=== PATIENT | female | born 1990 | race Caucasian/White ===

== ENCOUNTER 2016-11-13 21:59 | Emergency (ER) | payer OTHER, MEDICAID ==
[2016-11-14] MEDS ORDERED: ONDANSETRON ODT 4 MG TAB (6 TAB/DSPK) PO PRN (00:53)
[2016-11-14] MEDS ORDERED: HYDROCODONE/ACETAMINOPHEN 5-325 MG 6 TAB/DSPK PO PRN (00:53)
[2016-11-14] MEDS ORDERED: MECLIZINE HCL 25 MG TABLET PO ONE (00:53)
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
== END 2016-11-14 01:43 | disposition home or self-care (01) ==
LOC: EEVIPCON 21:59 → ER 21:59
DX: F07.81 Postconcussional syndrome (principal); R42 Dizziness and giddiness; R11.0 Nausea; R51 Headache
CPT/HCPCS: 99284

== ENCOUNTER 2017-05-09 21:16 | Emergency (ER) | payer MEDICAID, OTHER ==
[2017-05-09] MEDS ORDERED: IBUPROFEN 800 MG TABLET PO ONE (22:45)
[2017-05-09] MEDS ORDERED: AZITHROMYCIN 250 MG TABLET PO ONE (22:45)
[2017-05-09] MEDS ORDERED: NEOMY SULF/POLYMYX B SULF/HC OTIC SUSP 10 ML AD SCH (22:45)
--- NOTE | 2017-05-09 22:55 | ER Document Report ---
ED General - General Chief Complaint: Ear Pain Stated Complaint: EAR PAIN Time Seen by Provider: 05/09/17 22:30 Mode of Arrival: Ambulatory Information source: Patient TRAVEL OUTSIDE OF THE [place] IN LAST 30 DAYS: No - HPI Notes: Patient is a 26-year-old female history of seasonal allergies and previous tonsillectomy 17 years ago presents emergency department with report of a 2 week history of cough congestion with bilateral ear pain and diminished hearing. The patient reports that she blew her nose and had a reyes of foul- smelling fluid coming from the right ear at 1600 today. She reports a mild pharyngitis. She denies any dizziness. There is a history of diet-controlled diabetes. - Related Data Allergies/Adverse Reactions: Penicillins Allergy (Severe, Verified 07/06/16 20:15) Anaphylaxis all cillins Allergy (Severe, Uncoded 07/06/16 20:15) Anaphylaxis Past Medical History - General Information source: Patient - Social History Smoking Status: Current Every Day Smoker Chew tobacco use (# tins/day): No Frequency of alcohol use: Occasional Drug Abuse: None Family History: CVA, DM, Malignancy Pulmonary Medical History: Reports: Hx Bronchitis Endocrine Medical History: Comment Only: Hx Diabetes Mellitus Type 2 - "prediabetic" Renal/ Medical History: Reports: Hx Ovarian Cysts. Denies: Hx Peritoneal Dialysis, Hx Pelvic Inflammatory Disease Psychiatric Medical History: Reports: Hx Depression Infectious Medical History: Denies: Hx HIV Past Surgical History: Reports: Hx Oral Surgery, Hx Tonsillectomy - Immunizations Immunizations up to date: Yes Hx Diphtheria, Pertussis, Tetanus Vaccination: Yes Review of Systems - Review of Systems Notes: REVIEW OF SYSTEMS: CONSTITUTIONAL : Denies fever, chills, or sweats. Denies recent illness. EENT: Denies eye, or mouth pain or symptoms. Denies throat, tongue, or mouth swelling or difficulty swallowing. CARDIOVASCULAR: Denies chest pain. Denies palpitations or racing or irregular heart beat. Denies ankle edema. RESPIRATORY: Denies shortness of breath, difficulty breathing, or wheezing. GASTROINTESTINAL: Denies abdominal pain or distention. Denies nausea, vomiting , or diarrhea. Denies blood in vomitus, stools, or per rectum. Denies black, tarry stools. Denies constipation. GENITOURINARY: Denies difficulty urinating, painful urination, burning, frequency, blood in urine, or discharge. FEMALE GENITOURINARY: Denies vaginal bleeding, heavy or abnormal periods, irregular periods. Denies vaginal discharge or odor. MUSCULOSKELETAL: Denies back or neck pain or stiffness. Denies joint pain or swelling. SKIN: Denies rash, lesions or sores. HEMATOLOGIC : Denies easy bruising or bleeding. LYMPHATIC: Denies swollen, enlarged glands. NEUROLOGICAL: Denies confusion or altered mental status. Denies passing out or loss of consciousness. Denies dizziness or lightheadedness. Denies headache. Denies weakness or paralysis or loss of use of either side. Denies problems with gait or speech. Denies sensory loss, numbness, or tingling. Denies seizures. PSYCHIATRIC: Denies anxiety or stress. Denies depression, suicidal ideation, or homicidal ideation. ALL OTHER SYSTEMS REVIEWED AND NEGATIVE. Dictation was performed using [employer] voice recognition software Physical Exam - Vital signs Vitals: Temp Pulse Resp BP Pulse Ox 98.4 F 104 H 18 145/83 H 97 05/09/17 21:20 05/09/17 21:20 05/09/17 21:20 05/09/17 21:20 05/09/17 21:20 - Notes Notes: PHYSICAL EXAMINATION: GENERAL: Well-appearing, well-nourished and in no acute distress. HEAD: Atraumatic, normocephalic. EYES: Pupils equal round and reactive to light, extraocular movements intact, conjunctiva are normal. ENT: Nares patent. oropharynx clear without exudates. Moist mucous membranes. Status post tonsillectomy. Mild coryza noted. There is somewhat clear fluid behind both TMs. The right TM appears without bulging. I am unable to appreciate any obvious tympanic membrane perforation on initial exam, but when the patient attempts to clear her ears I am able to appreciate a small area of a perforation of the tympanic membrane at approximately 5:00. There is no bleeding however. No evidence for otitis externa. There is no mastoid tenderness. NECK: Normal range of motion, supple without lymphadenopathy LUNGS: Breath sounds clear to auscultation bilaterally and equal. No wheezes rales or rhonchi. HEART: Regular rate and rhythm without murmurs ABDOMEN: Soft, nontender, nondistended abdomen. No guarding, no rebound. No masses appreciated. Female : deferred Musculoskeletal: Normal range of motion, no pitting or edema. No cyanosis. NEUROLOGICAL: Cranial nerves grossly intact. Normal speech, normal gait. Normal sensory, motor exams PSYCH: Normal mood, normal affect. SKIN: Warm, Dry, normal turgor, no rashes or lesions noted. Course - Re-evaluation Re-evalutation: 05/09/17 23:40 Blood sugar is 91. The patient was given Cortisporin otic suspension drops, ibuprofen, Zithromax. ENT followup urged. 05/09/17 23:41 - Vital Signs Vital signs: Temp Pulse Resp BP Pulse Ox 98.4 F 104 H 18 145/83 H 97 05/09/17 21:20 05/09/17 21:20 05/09/17 21:20 05/09/17 21:20 05/09/17 21:20 Discharge - Discharge Clinical Impression: Otitis media Qualifiers: Otitis media type: serous Chronicity: acute Laterality: bilateral Recurrence: not specified as recurrent Qualified Code(s): H65.03 - Acute serous otitis media , bilateral Upper respiratory infection Qualifiers: URI type: unspecified viral URI Qualified Code(s): J06.9 - Acute upper respiratory infection, unspecified Tympanic membrane central perforation Qualifiers: Laterality: right Qualified Code(s): H72.01 - Central perforation of tympanic membrane, right ear Condition: Stable Disposition: HOME, SELF-CARE Instructions: Upper Respiratory Illness ([facility]), Perforated Eardrum ([facility]), Serous Otitis Media ([facility]) Additional Instructions: Continue taking Mucinex. Add in Clarinex as directed for any allergic symptoms. Follow-up with tool gr[employer] within 2-3 weeks to reevaluate the perforated eardrum. Prescriptions: Ibuprofen 800 mg PO Q8HP PRN #30 tablet PRN Reason: Azithromycin [Zithromax 250 mg Tablet] 250 mg PO DAILY #4 tablet Desloratadine [Clarinex] 5 mg PO DAILY #30 tablet Forms: Return to Work Referrals: LUCIANA KAPOOR MD [Primary Care Provider] - Follow up as needed ENT [Provider Group] - Follow up as needed KOFI VIDALES MD [ACTIVE STAFF] - Follow up as needed
[2017-05-09 23:57] VITALS: BP 137/79
== END 2017-05-09 23:55 | disposition home or self-care (01) ==
LOC: ER 21:16
DX: H65.03 Acute serous otitis media, bilateral (principal); H72.01 Central perforation of tympanic membrane, right ear; J06.9 Acute upper respiratory infection, unspecified; B97.89 Other viral agents as the cause of diseases classified elsewhere; R05 Cough; H92.03 Otalgia, bilateral; J02.9 Acute pharyngitis, unspecified; F17.200 Nicotine dependence, unspecified, uncomplicated; Z87.892 Personal history of anaphylaxis; Z88.0 Allergy status to penicillin; Z90.89 Acquired absence of other organs
CPT/HCPCS: 99283; 82962; Q0144; J3490 ×2

== ENCOUNTER 2017-08-14 18:39 | Emergency (ER) | payer SELFPAY ==
[2017-08-14] MEDS ORDERED: NORMAL SALINE 1000 ML 1,000 ML IV PRN (19:35)
[2017-08-14] MEDS ORDERED: ONDANSETRON 4 MG TAB.RAPDIS SL ONE (19:35)
--- NOTE | 2017-08-14 19:35 | ER Document Report ---
ED Medical Screen (RME) - General Chief Complaint: Abdominal Pain Stated Complaint: VOMITING Time Seen by Provider: 08/14/17 18:54 Mode of Arrival: Ambulatory Information source: Patient TRAVEL OUTSIDE OF THE [place] IN LAST 30 DAYS: No - HPI Patient complains to provider of: Abdominal pain, nausea and vomiting Notes: 08/14/17 19:35 Patient is a 27-year-old female with abdominal pain on the right side, nausea and vomiting with decreased urination, symptoms have been going on for the past 24 hours - Related Data Allergies/Adverse Reactions: Penicillins Allergy (Severe, Verified 08/14/17 18:48) Anaphylaxis all cillins Allergy (Severe, Uncoded 08/14/17 18:48) Anaphylaxis Past Medical History Pulmonary Medical History: Reports: Hx Bronchitis Endocrine Medical History: Comment Only: Hx Diabetes Mellitus Type 2 - "prediabetic" Renal/ Medical History: Reports: Hx Ovarian Cysts. Denies: Hx Peritoneal Dialysis, Hx Pelvic Inflammatory Disease Psychiatric Medical History: Reports: Hx Depression Infectious Medical History: Denies: Hx HIV Past Surgical History: Reports: Hx Oral Surgery, Hx Tonsillectomy - Immunizations Immunizations up to date: Yes Hx Diphtheria, Pertussis, Tetanus Vaccination: Yes Physical Exam - Vital signs Vitals: Temp Pulse Resp BP Pulse Ox 99.8 F 100 14 135/83 H 97 08/14/17 18:48 08/14/17 18:48 08/14/17 18:48 08/14/17 18:48 08/14/17 18:48 Course - Vital Signs Vital signs: Temp Pulse Resp BP Pulse Ox 99.8 F 100 14 135/83 H 97 08/14/17 18:48 08/14/17 18:48 08/14/17 18:48 08/14/17 18:48 08/14/17 18:48
[2017-08-14 20:19] LABS: ABSOLUTE LYMPHOCYTES (AUTO) 1.4 10^3/uL (0.5-4.7); ABSOLUTE MONOCYTES (AUTO) 0.7 10^3/uL (0.1-1.4); ABSOLUTE NEUT (AUTO) 3.9 10^3/uL (1.7-8.2); BASOPHILS % (AUTO) 0.6 % (0-2); EOSINOPHILS % (AUTO) 0.7 % (0-6); HEMATOCRIT 44.6 % (36.0-47.0); HEMOGLOBIN 15.4 g/dL (12.0-15.5); HGB HCT DIFFERENCE 1.6; LYMPHOCYTES % (AUTO) 23.8 % (13-45); MEAN CORPUSCULAR HEMOGLOBIN 29.4 pg (27.0-33.4); MEAN CORPUSCULAR HGB CONC 34.5 g/dL (32.0-36.0); MEAN CORPUSCULAR VOLUME 85 fl (80-97); MONOCYTES % (AUTO) 11.1 % (3-13); RED BLOOD COUNT 5.22 10^6/uL (3.72-5.28); RED CELL DISTRIBUTION WIDTH 13.4 % (11.5-14.0); SEGMENTED NEUTROPHILS % (AUTO) 63.8 % (42-78); WHITE BLOOD COUNT 6.1 10^3/uL (4.0-10.5)
[2017-08-14 20:32] LABS: ALANINE AMINOTRANSFERASE 43 U/L (9-52); ALBUMIN 4.1 g/dL (3.5-5.0); ALKALINE PHOSPHATASE 81 U/L (38-126); ANION GAP 10 (5-19); ASPARTATE AMINO TRANSFERASE 24 U/L (14-36); BILIRUBIN,DIRECT 0.3 mg/dL (0.0-0.4); BILIRUBIN,TOTAL 0.5 mg/dL (0.2-1.3); BLOOD UREA NITROGEN 11 mg/dL (7-20); CALCIUM 9.4 mg/dL (8.4-10.2); CARBON DIOXIDE 25 mmol/L (22-30); CHLORIDE 105 mmol/L (98-107); CREATININE RESULT 0.76 mg/dL (0.52-1.25); GLUCOSE 79 mg/dL (75-110); LIPASE 40.5 U/L (23-300); SODIUM 139.9 mmol/L (137-145)
[2017-08-14] MEDS ORDERED: KETOROLAC TROMETHAMINE INJ/PF 30 MG/1 ML SDV IV ONE (20:49)
[2017-08-14] MEDS ORDERED: ONDANSETRON HCL INJ/PF 4 MG/2 ML SDV IV ONE (20:55)
[2017-08-14 22:24] LABS: AMORPHOUS SEDIMENT,URINE TRACE /HPF; APPEARANCE,URINE TURBID; BILIRUBIN,URINE NEGATIVE (NEGATIVE); GLUCOSE, URINE NEGATIVE (NEGATIVE); KETONES,URINE TRACE mg/dL (NEGATIVE); LEUKOCYTE ESTERASE,URINE NEGATIVE (NEGATIVE); NITRITE,URINE NEGATIVE (NEGATIVE); PROTEIN,URINE 30 mg/dL (NEGATIVE); URINE SPECIFIC GRAVITY 1.032; UROBILINOGEN,URINE NEGATIVE mg/dL (<2.0)
[2017-08-14] MEDS ORDERED: ONDANSETRON ODT 4 MG TAB (6 TAB/DSPK) PO PRN (22:39)
--- NOTE | 2017-08-14 22:42 | ER Document Report ---
ED General - General Chief Complaint: Abdominal Pain Stated Complaint: VOMITING Time Seen by Provider: 08/14/17 18:54 Mode of Arrival: Ambulatory Notes: Patient is a 27-year-old female with a past medical history of morbid obesity who presents with 24 hours of vomiting and intermittent right flank pain. Patient states that symptoms been constant since onset and has made it difficult to tolerate oral intake. States she is unable to tolerate oral intake for at least 12 hours. No known sick contacts. She does report the pain in her right flank is a mild, dull, aching pain. No history of similar symptoms in the past. Nothing improves or worsens her symptoms. She has not seen her primary care doctor regarding today's concerns. She has had a minimal amount of diarrhea. She has not had any fever or constitutional symptoms. TRAVEL OUTSIDE OF THE [place] IN LAST 30 DAYS: No - Related Data Allergies/Adverse Reactions: Penicillins Allergy (Severe, Verified 08/14/17 18:48) Anaphylaxis all cillins Allergy (Severe, Uncoded 08/14/17 18:48) Anaphylaxis Past Medical History - General Information source: Patient - Social History Smoking Status: Former Smoker Chew tobacco use (# tins/day): No Frequency of alcohol use: Rare Drug Abuse: None Lives with: Family Family History: CVA, DM, Malignancy Pulmonary Medical History: Reports: Hx Bronchitis Endocrine Medical History: Comment Only: Hx Diabetes Mellitus Type 2 - "prediabetic" Renal/ Medical History: Reports: Hx Ovarian Cysts. Denies: Hx Peritoneal Dialysis, Hx Pelvic Inflammatory Disease Psychiatric Medical History: Reports: Hx Depression Infectious Medical History: Denies: Hx HIV Past Surgical History: Reports: Hx Oral Surgery, Hx Tonsillectomy - Immunizations Immunizations up to date: Yes Hx Diphtheria, Pertussis, Tetanus Vaccination: Yes Review of Systems - Review of Systems Notes: Constitutional: Negative for fever. HENT: Negative for sore throat. Eyes: Negative for visual changes. Cardiovascular: Negative for chest pain. Respiratory: Negative for shortness of breath. Gastrointestinal: Positive for flank pain and vomiting Genitourinary: Negative for dysuria. Musculoskeletal: Negative for back pain. Skin: Negative for rash. Neurological: Negative for headaches, weakness or numbness. 10 point ROS negative except as marked above and in HPI. Physical Exam - Vital signs Vitals: Temp Pulse Resp BP Pulse Ox 99.8 F 100 14 135/83 H 97 08/14/17 18:48 08/14/17 18:48 08/14/17 18:48 08/14/17 18:48 08/14/17 18:48 Interpretation: Normal Notes: PHYSICAL EXAMINATION: GENERAL: Well-appearing, well-nourished and in no acute distress. HEAD: Atraumatic, normocephalic. EYES: Pupils equal round and reactive to light, extraocular movements intact, sclera anicteric, conjunctiva are normal. ENT: nares patent, oropharynx clear without exudates. Moderately dry mucous membranes. NECK: Normal range of motion, supple without lymphadenopathy LUNGS: Breath sounds clear to auscultation bilaterally and equal. No wheezes rales or rhonchi. HEART: Regular rate and rhythm without murmurs ABDOMEN: Soft, nontender, normoactive bowel sounds. No guarding, no rebound. No masses appreciated. EXTREMITIES: Normal range of motion, no pitting or edema. No cyanosis. NEUROLOGICAL: No focal neurological deficits. Moves all extremities spontaneously and on command. PSYCH: Normal mood, normal affect. SKIN: Warm, Dry, normal turgor, no rashes or lesions noted. Course - Re-evaluation Re-evalutation: 08/14/17 22:40 Presentation of an overall well-appearing patient in no acute distress with complaints of persistent nausea and mild right flank tenderness that started after multiple episodes of vomiting. Patient has no abdominal tenderness on exam and specifically no tenderness in the RLQ, LLQ, RUQ. Mild right flank tenderness to palpation. Clinical history is not consistent with an acute pulmonary embolus. Overall well hydrated on exam. Able to tolerate oral intake here in the emergency department. Low clinical suspicion for any acute life-threatening etiology based on exam and history including acute cholecystitis, SBO, appendicitis, nephrolithiasis, acute appendicitis, or pylonephritis. CMP without evidence of acute hepatitis or significant dehydration. At this time will discharge with return precautions and follow-up recommendations. Verbal discharge instructions given a the bedside and opportunity for questions given. Medication warnings reviewed. Patient is in agreement with this plan and has verbalized understanding of return precautions and the need for primary care follow-up in the next 24-72 hours. - Vital Signs Vital signs: Temp Pulse Resp BP Pulse Ox 98.5 F 89 16 139/75 H 89 L 08/14/17 23:05 08/14/17 23:05 08/14/17 23:05 08/14/17 23:05 08/14/17 23:05 - Laboratory Result Diagrams: 08/14/17 20:03 08/14/17 20:03 Laboratory results interpreted by me: 08/14/17 21:45 Urine Protein 30 H Urine Ketones TRACE H Urine Blood MODERATE H Discharge - Discharge Clinical Impression: Persistent vomiting, Right flank pain Condition: Good Disposition: HOME, SELF-CARE Additional Instructions: You have been seen in the Emergency Department (ED) today for nausea and vomiting. Your work up today has not shown a clear cause for your symptoms. You have been prescribed Zofran; please use as prescribed as needed for your nausea. Follow up with your doctor as soon as possible regarding today's emergent visit and your symptoms of nausea. Return to the Emergency Department (ED) if you develop abdominal pain, bloody vomiting, bloody diarrhea, if you are unable to tolerate fluids due to vomiting , or if you develop other symptoms that concern you. Forms: Return to Work
[2017-08-14 23:13] VITALS: BP 139/75
== END 2017-08-14 23:07 | disposition home or self-care (01) ==
LOC: ER 18:39
DX: R11.2 Nausea with vomiting, unspecified (principal); R10.9 Unspecified abdominal pain; R19.7 Diarrhea, unspecified; Z88.0 Allergy status to penicillin; Z87.891 Personal history of nicotine dependence
CPT/HCPCS: 99284; 96374; 36415; 87086; 83690; 84703; 85025; 80053; 81001; S0119; J1885

== ENCOUNTER 2017-08-28 11:48 | Emergency (ER) | payer MEDICAID ==
[2017-08-28 11:55] VITALS: BP 148/84
--- NOTE | 2017-08-28 12:33 | ER Document Report ---
ED ENT - General Chief Complaint: Ear Pain Stated Complaint: LEFT EAR PAIN Time Seen by Provider: 08/28/17 12:24 Notes: 27 yo female c/o pain to left ear x 3 days. pain radiating into left jaw, left side of head and neck. no fever TRAVEL OUTSIDE OF THE [place] IN LAST 30 DAYS: No - HPI Patient complains to provider of: Ear problem Onset: Yesterday Onset/Duration: Gradual, Persistent, Worse Quality of pain: Sharp Location of pain: Ears - left Associated symptoms: Ear pain, Headache, Jaw pain. denies: Fever Similar symptoms previously: No Recently seen / treated by doctor: Yes - had ear abscess to left ear several weeks ago - Related Data Allergies/Adverse Reactions: Penicillins Allergy (Severe, Verified 08/14/17 18:48) Anaphylaxis all cillins Allergy (Severe, Uncoded 08/14/17 18:48) Anaphylaxis Past Medical History - General Information source: Patient - Social History Smoking Status: Current Every Day Smoker Frequency of alcohol use: None Drug Abuse: None Lives with: Family Family History: Reviewed & Not Pertinent, CVA, DM, Malignancy Patient has suicidal ideation: No Patient has homicidal ideation: No Pulmonary Medical History: Reports: Hx Bronchitis Endocrine Medical History: Comment Only: Hx Diabetes Mellitus Type 2 - "prediabetic" Renal/ Medical History: Reports: Hx Ovarian Cysts. Denies: Hx Peritoneal Dialysis, Hx Pelvic Inflammatory Disease Psychiatric Medical History: Reports: Hx Depression Infectious Medical History: Denies: Hx HIV Past Surgical History: Reports: Hx Oral Surgery, Hx Tonsillectomy - Immunizations Immunizations up to date: Yes Hx Diphtheria, Pertussis, Tetanus Vaccination: Yes Review of Systems - Review of Systems Constitutional: No symptoms reported EENT: See HPI, Ear pain Cardiovascular: No symptoms reported Respiratory: No symptoms reported Gastrointestinal: No symptoms reported Genitourinary: No symptoms reported Female Genitourinary: No symptoms reported Musculoskeletal: No symptoms reported Skin: No symptoms reported Hematologic/Lymphatic: No symptoms reported Neurological/Psychological: No symptoms reported Physical Exam - Vital signs Vitals: Temp Pulse Resp BP Pulse Ox 98.8 F 76 16 148/84 H 98 08/28/17 11:54 08/28/17 11:54 08/28/17 11:54 08/28/17 11:54 08/28/17 11:54 Interpretation: Normal - General General appearance: Appears well, Alert - HEENT Head: Normocephalic, Atraumatic Eyes: Normal Conjunctiva: Normal Pupils: PERRL Tympanic membrane: Other - left TM dull, + opaque area @ 7 oclock left EAC erythemaous and edematous. painful exam. + pre and post auricular tenderness. mastoid nontender Sinus: Normal Mucous membranes: Moist Neck: Normal, Supple - Respiratory Respiratory status: No respiratory distress Chest status: Nontender Breath sounds: Normal Chest palpation: Normal - Cardiovascular Rhythm: Regular Heart sounds: Normal auscultation Murmur: No - Abdominal Inspection: Normal Distension: No distension Bowel sounds: Normal Tenderness: Nontender Organomegaly: No organomegaly - Back Back: Normal, Nontender - Extremities General upper extremity: Normal inspection, Nontender, Normal color, Normal ROM , Normal temperature General lower extremity: Normal inspection, Nontender, Normal color, Normal ROM , Normal temperature, Normal weight bearing. No: Ismael's sign - Neurological Neuro grossly intact: Yes Cognition: Normal Orientation: AAOx4 Fredis Coma Scale Eye Opening: Spontaneous Fredis Coma Scale Verbal: Oriented [place] Coma Scale Motor: Obeys Commands [place] Coma Scale Total: 15 Speech: Normal Motor strength normal: LUE, RUE, LLE, RLE Sensory: Normal - Psychological Associated symptoms: Normal affect, Normal mood - Skin Skin Temperature: Warm Skin Moisture: Dry Skin Color: Normal Course - Re-evaluation Re-evalutation: 08/28/17 12:53 pt's left ear is c/w an otitis externa. there appears to be a pus collection or some sort of opacity behind the ear drum at 7 oclock. pt is self pay and requesting meds on 4$ list at [facility]. pt is allergic to PCN. will treat with Bactrim and Tobramycin and short course of pain medication. encouraged to follow up with ENT if pain persists. pt is afebrile nontoxic and stable for discharge. We discussed the diagnosis and worrisome symptoms for which she should return to ER. pt agreeable with plan and stable for discharge - Vital Signs Vital signs: Temp Pulse Resp BP Pulse Ox 98.8 F 76 16 148/84 H 98 08/28/17 11:54 08/28/17 11:54 08/28/17 11:54 08/28/17 11:54 08/28/17 11:54 Discharge - Discharge Clinical Impression: Left acute otitis media Acute otitis externa of left ear Qualifiers: Otitis externa type: unspecified type Qualified Code(s): H60.502 - Unspecified acute noninfective otitis externa, left ear Condition: Stable Disposition: HOME, SELF-CARE Instructions: Antibiotic Therapy ([facility]), Use of Ear Drops ([facility]), Oral Narcotic Medication ([facility]), Otitis Externa ([facility]), Otitis Media ([facility]) Additional Instructions: You have an infection of the inner and outer ear Please take all medication as prescribed Take pain medication as needed Keep ear completely dry x 7 days Follow up with ENT for further evaluation and treatment Dr Motta [phone] [place] [id number] Prescriptions: Oxycodone HCl/Acetaminophen [Percocet 5-325 mg Tablet] 1 tab PO Q4H PRN #15 tablet PRN Reason: Sulfamethoxazole/Trimethoprim [Bactrim Ds Tablet] 1 each PO BID #20 tablet Tobramycin Sulfate [Tobrex 0.3% Oph Soln 5 ml] 3 drop LFT_EAR Q4H #1 bottle Forms: Return to Work
== END 2017-08-28 12:48 | disposition home or self-care (01) ==
LOC: ER 11:48
DX: H66.92 Otitis media, unspecified, left ear (principal); H60.502 Unspecified acute noninfective otitis externa, left ear; H92.02 Otalgia, left ear; R68.84 Jaw pain; R51 Headache; M54.2 Cervicalgia; F17.200 Nicotine dependence, unspecified, uncomplicated
CPT/HCPCS: 99282

== ENCOUNTER 2017-11-07 16:01 | Emergency (ER) | payer MEDICAID, OTHER ==
[2017-11-07] MEDS ORDERED: DEXAMETHASONE SOD PHOS INJ 10 MG/1 ML VIAL IM ONE (16:31)
--- NOTE | 2017-11-07 16:32 | ER Document Report ---
HPI - HPI Pain Level: 4 Notes: Patient is a 27-year-old female with a history of chronic back pain who presents ED complaining of left lower back pain with intermittent radiation down the back of her left leg. Patient states that twisting and bending motions make the pain worse while lying still improves her pain. Pain is described as a sharp pain to her left lower back. She denies any injury. Patient has not had any surgeries or injections in her back. She denies any IV drug use, diabetes, or other immunocompromised condition. She is eating and drinking without any difficulties. She is urinating normally and having normal bowel movements. Pt requesting work note to return tomorrow. No other concerns or complaints at this time. Denies any headache, fever, URI, sore throat, chest pain, palpitations, syncope, cough, shortness of breath, wheeze, dyspnea, abdominal pain, nausea/vomiting/diarrhea, urinary retention, dysuria, hematuria, loss of control of bowel or bladder, numbness/tingling, saddle anesthesia, muscle paralysis/weakness, or rash. - ROS Notes: REVIEW OF SYSTEMS: CONSTITUTIONAL : Denies fever, chills, or sweats. Denies recent illness. EENT: Denies eye, ear, throat, or mouth pain or symptoms. Denies nasal or sinus congestion or discharge. Denies throat, tongue, or mouth swelling or difficulty swallowing. CARDIOVASCULAR: Denies chest pain. Denies palpitations or racing or irregular heart beat. Denies ankle edema. RESPIRATORY: Denies cough, cold, or chest congestion. Denies shortness of breath, difficulty breathing, or wheezing. GASTROINTESTINAL: Denies abdominal pain or distention. Denies nausea, vomiting , or diarrhea. Denies blood in vomitus, stools, or per rectum. Denies black, tarry stools. Denies constipation. GENITOURINARY: Denies difficulty urinating, painful urination, burning, frequency, blood in urine, or discharge. MUSCULOSKELETAL: see hpi SKIN: Denies rash, lesions or sores. NEUROLOGICAL: Denies passing out or loss of consciousness. Denies dizziness or lightheadedness. Denies headache. Denies problems with gait or speech. Denies sensory loss, numbness, or tingling. Denies seizures. ALL OTHER SYSTEMS REVIEWED AND NEGATIVE. Dictation was performed using [employer] voice recognition software - REPRODUCTIVE Reproductive: DENIES: : Past Medical History - Social History Smoking Status: Unknown if Ever Smoked Family History: Reviewed & Not Pertinent, CVA, DM, Malignancy Pulmonary Medical History: Reports: Hx Bronchitis Endocrine Medical History: Comment Only: Hx Diabetes Mellitus Type 2 - "prediabetic" Renal/ Medical History: Reports: Hx Ovarian Cysts. Denies: Hx Peritoneal Dialysis, Hx Pelvic Inflammatory Disease Psychiatric Medical History: Reports: Hx Depression Infectious Medical History: Denies: Hx HIV Past Surgical History: Reports: Hx Oral Surgery, Hx Tonsillectomy - Immunizations Immunizations up to date: Yes Hx Diphtheria, Pertussis, Tetanus Vaccination: Yes Vertical Provider Document - CONSTITUTIONAL Agree With Documented VS: Yes Notes: PHYSICAL EXAMINATION: GENERAL: Well-appearing, well-nourished and in no acute distress. LUNGS: Breath sounds clear to auscultation bilaterally and equal. No wheezes rales or rhonchi. HEART: Regular rate and rhythm without murmurs, rubs, gallops. ABDOMEN: Soft, nontender, nondistended abdomen. No guarding, no rebound. No masses appreciated. Normal bowel sounds present. No CVA tenderness bilaterally. No pulsatile mass Musculoskeletal: LE's b/l: FROM to passive/active. Strength 5+/5. No deficits noted. No bony tenderness of extremities. Back: FROM to passive/active. Strength 5+/5. No vertebral point tenderness, stepoffs, or deformities. No other bony tenderness, erythema, swelling, or ecchymosis. SLR negative b/l. + tenderness to the b/l L-paraspinal mm. Mild spasming. + left SI jt tenderness. Extremities: No cyanosis, clubbing, or edema b/l. Peripheral pulses 2+. Capillary refill less than 2 seconds. NEUROLOGICAL: Normal speech, ataxic gait. Normal sensory, motor exams. Reflexes 2+ b/l. PSYCH: Normal mood, normal affect. SKIN: Warm, Dry, normal turgor, no rashes or lesions noted. - INFECTION CONTROL TRAVEL OUTSIDE OF THE [place] IN LAST 30 DAYS: No Course - Re-evaluation Re-evalutation: 11/07/17 16:30 Patient is an afebrile, well-hydrated, 27-year-old female who presents to the ED with a low back strain. Vitals are stable. PE is otherwise unremarkable for any focal neurological deficits. No imaging or lab work warranted at this time based on H&P. Low suspicion for any meningitis, fracture, expanding/ ruptured AAA, cauda equina syndrome, epidural mass lesion/abscess, herniated disc causing severe spinal stenosis, or other systemic infection at this time. Patient is aware that her condition can change from initial presentation and that she needs monitor symptoms closely for any acute changes. Decadron 10 mg given IM today. Patient declined Toradol. I will send her home with a prescription for naproxen and baclofen. Work note provided. Conservative measures for symptoms otherwise as needed. Recheck with your PCM in 3-5 days. Consider consult with orthopedics and physical therapy. Return to the ED with any worsening/concerning symptoms otherwise as reviewed in discharge. Patient is in agreement. Discharge - Discharge Clinical Impression: Low back strain Qualifiers: Encounter type: initial encounter Qualified Code(s): S39.012A - Strain of muscle, fascia and tendon of lower back, initial encounter Condition: Stable Disposition: HOME, SELF-CARE Instructions: Low Back Pain ([facility]), Muscle Strain ([facility]) Additional Instructions: Rest, Ice Tylenol/ibuprofen as needed Light stretches daily Strength exercises as able Moist heat and massage may help F/u with your PCP in 3-5 days for a recheck Consider consult(s) with Orthopedics/physical therapy for ongoing/worsening symptoms Return to the ED with any worsening symptoms and/or development of fever, headache, chest pain, palpitations, syncope, shortness of breath, trouble breathing, abdominal pain, n/v/d, blood in stool/urine, loss of control of bowel /bladder, urinary retention, muscle weakness/paralysis, saddle anesthesia, numbness/tingling, or other worsening symptoms that are concerning to you. Prescriptions: Baclofen [Baclofen 10 mg Tablet] 5 - 10 mg PO BID PRN #10 tablet PRN Reason: Naproxen 500 mg PO BID PRN #30 tablet PRN Reason: Forms: Elevated Blood Pressure, Return to Work Referrals: [facility] [Provider Group] - Follow up as needed
== END 2017-11-07 16:57 | disposition home or self-care (01) ==
LOC: ER 16:01
DX: S39.012A Strain of muscle, fascia and tendon of lower back, initial encounter (principal); G89.29 Other chronic pain; M79.605 Pain in left leg; X50.1XXA Overexertion from prolonged static or awkward postures, initial encounter
CPT/HCPCS: 99283; 96372; J1100

== ENCOUNTER 2017-12-10 08:39 | Emergency (ER) | payer MEDICAID ==
--- NOTE | 2017-12-10 09:20 | ER Document Report ---
ED General - General Chief Complaint: Ear Pain Stated Complaint: LEFT EAR PAIN Time Seen by Provider: 12/10/17 08:51 Notes: 19-year-old female presents with pain pressure and drainage of the left ear. 3 days. Associated with face pain. No fevers or chills. She complains that her ears with Q-tips. She is a smoker. TRAVEL OUTSIDE OF THE [place] IN LAST 30 DAYS: No - Related Data Allergies/Adverse Reactions: Penicillins Allergy (Severe, Verified 08/14/17 18:48) Anaphylaxis all cillins Allergy (Severe, Uncoded 08/14/17 18:48) Anaphylaxis Past Medical History - Social History Smoking Status: Current Every Day Smoker Chew tobacco use (# tins/day): No Smoking Education Provided: Yes - The patient ED visit today was directly related to their abuse of tobacco. Frequency of alcohol use: None Drug Abuse: None Family History: Reviewed & Not Pertinent, CVA, DM, Malignancy Patient has suicidal ideation: No Patient has homicidal ideation: No Pulmonary Medical History: Reports: Hx Bronchitis Endocrine Medical History: Comment Only: Hx Diabetes Mellitus Type 2 - "prediabetic" Renal/ Medical History: Reports: Hx Ovarian Cysts. Denies: Hx Peritoneal Dialysis, Hx Pelvic Inflammatory Disease Psychiatric Medical History: Reports: Hx Depression Infectious Medical History: Denies: Hx HIV Past Surgical History: Reports: Hx Oral Surgery, Hx Tonsillectomy - Immunizations Immunizations up to date: Yes Hx Diphtheria, Pertussis, Tetanus Vaccination: Yes Review of Systems - Review of Systems Notes: REVIEW OF SYSTEMS GEN: Denies fever, chills, weight loss ENT: Ear pain drainage n EYES: Denies blurry vision, eye pain, discharge CV: Denies chest pain, palpitations, edema RESP: Denies cough, shortness of breath, wheezing GI: Denies abdominal pain, nausea, vomiting, diarrhea MSK: Denies joint pain/swelling, edema, SKIN: Denies rash, skin lesions LYMPH: Denies swollen glands/lymph nodes NEURO: Denies headache, focal weakness or numbness, dizziness PSYCH: Denies depression, suicidal or homicidal ideation PHYSICAL EXAMINATION General: No acute distress, well-nourished Head: Atraumatic, normocephalic ENT: Mouth normal. Debris and edema of the external canal precluding visualization of the left TM. Neck: No JVD, supple, no guarding CVS: Normal rate, regular rhythm, no murmurs Resp: No resp distress, equal and normal breath sounds bilaterally GI: Nondistended, soft, no tenderness to palpation, no rebound or guarding Ext: No deformities, no edema, normal range of motion in upper and lower ext Back: No CVA or midline TTP Skin: No rash, warm Lymphatic: No lymphadeopathy noted Neuro: Awake, alert. Face symmetric. GCS 15. Physical Exam - Vital signs Vitals: Temp Pulse Resp BP Pulse Ox 98.5 F 87 18 123/80 97 12/10/17 08:45 12/10/17 08:45 12/10/17 08:45 12/10/17 08:45 12/10/17 08:45 Course - Re-evaluation Re-evalutation: 12/10/17 09:18 Left otitis externa and probable media given headache. Will prescribe antibiotics as well as drops. No other acute emergencies identified. Smoking cessation provided. I have discussed with the patient there likely diagnosis, aftercare plan, follow -up plans and my usual and customary return precautions. They verbalized understanding of this. - Vital Signs Vital signs: Temp Pulse Resp BP Pulse Ox 98.5 F 87 18 123/80 97 12/10/17 08:45 12/10/17 08:45 12/10/17 08:45 12/10/17 08:45 12/10/17 08:45 Discharge - Discharge Clinical Impression: Otitis media of left ear Qualifiers: Otitis media type: suppurative Chronicity: acute Recurrence: not specified as recurrent Spontaneous tympanic membrane rupture: without spontaneous rupture Qualified Code(s): H66.002 - Acute suppurative otitis media without spontaneous rupture of ear drum, left ear Condition: Good Disposition: HOME, SELF-CARE Instructions: Otitis Media ([facility]) Prescriptions: Cefdinir [Omnicef 300 mg Capsule] 1 cap PO BID #14 capsule Ciprofloxacin HCl/Dexameth [Ciprodex Otic Suspension 7.5 ml Bottle] 4 drop OT BID #1 bottle
[2017-12-10 09:52] VITALS: BP 124/71
== END 2017-12-10 09:51 | disposition home or self-care (01) ==
LOC: ER 08:39
DX: H66.002 Acute suppurative otitis media without spontaneous rupture of ear drum, left ear (principal); H92.02 Otalgia, left ear; R51 Headache; F17.200 Nicotine dependence, unspecified, uncomplicated
CPT/HCPCS: 99282

== ENCOUNTER 2018-07-18 07:50 | Emergency (ER) | payer MEDICAID ==
[2018-07-18 08:05] VITALS: BP 139/78
[2018-07-18] MEDS ORDERED: ALBUTEROL SULFATE 0.083% NEB 2.5 MG/3 ML AMPUL NEB ONE (08:35)
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
== END 2018-07-18 10:30 | disposition home or self-care (01) ==
LOC: ER 07:50
DX: J70.5 Respiratory conditions due to smoke inhalation (principal); R05 Cough; F17.200 Nicotine dependence, unspecified, uncomplicated; R73.03 Prediabetes
CPT/HCPCS: 94640; 99283

== ENCOUNTER 2018-08-09 09:13 | Emergency (ER) | payer MEDICAID ==
--- NOTE | 2018-08-09 09:32 | ER Document Report ---
ED Fall - General Chief Complaint: Fall Injury Stated Complaint: FALL LEG PAIN Time Seen by Provider: 08/09/18 09:24 Information source: Patient Notes: Patient is a 28-year-old female who comes into the emergency room by her itself. Patient states that she fell about 1:30 AM this morning at home. She landed on her left side with her left leg probably up under her per patient. She is unsure as to position that she landed in. She states that she hurts from the knee down. When asked if she walks after the incident she states with severe pain. She denies any other injuries. 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 She denies any other medical problems with the exception of she is a borderline diabetic. TRAVEL OUTSIDE OF THE [place] IN LAST 30 DAYS: No - HPI Patient complains to provider of: Fall at home. Trip and fall Occurred: This morning - 12 10 Where: Home Context: Tripped Associated symptoms: None Location of injury/pain: Foot, Knee, Lower extremity Quality of pain: Pressure, Sharp, Throbbing Severity: Moderate Pain Level: 3 - Related data Allergies/Adverse Reactions: Penicillins Allergy (Severe, Verified 08/09/18 09:14) Anaphylaxis all cillins Allergy (Severe, Uncoded 08/09/18 09:14) Anaphylaxis Past Medical History - General Information source: Patient - Social History Smoking Status: Current Every Day Smoker Cigarette use (# per day): Yes - Half-pack a day Chew tobacco use (# tins/day): No Smoking Education Provided: Yes Frequency of alcohol use: Rare Drug Abuse: None Family History: Reviewed & Not Pertinent, CVA, DM, Malignancy Pulmonary Medical History: Reports: Hx Bronchitis Endocrine Medical History: Comment Only: Hx Diabetes Mellitus Type 2 - "prediabetic" Renal/ Medical History: Reports: Hx Ovarian Cysts. Denies: Hx Peritoneal Dialysis, Hx Pelvic Inflammatory Disease Psychiatric Medical History: Reports: Hx Depression Infectious Medical History: Denies: Hx HIV Past Surgical History: Reports: Hx Oral Surgery, Hx Tonsillectomy - Immunizations Immunizations up to date: Yes Hx Diphtheria, Pertussis, Tetanus Vaccination: Yes Review of Systems - Review of Systems Constitutional: No symptoms reported EENT: No symptoms reported Cardiovascular: No symptoms reported Respiratory: No symptoms reported Gastrointestinal: No symptoms reported Genitourinary: No symptoms reported Female Genitourinary: No symptoms reported Musculoskeletal: Joint pain, Muscle pain, Muscle stiffness, Leg swelling, Ankle swelling. denies: Deformity Skin: No symptoms reported Hematologic/Lymphatic: No symptoms reported Neurological/Psychological: No symptoms reported -: Yes All other systems reviewed and negative Physical Exam - Vital signs Vitals: Temp Pulse Resp BP Pulse Ox 97.8 F 97 20 177/92 H 96 08/09/18 09:17 08/09/18 09:17 08/09/18 09:17 08/09/18 09:17 08/09/18 09:17 Interpretation: Hypertensive - Notes Notes: Well-nourished well-developed morbidly obese female. Appears to be an moderate discomfort. - General General appearance: Alert In distress: None - HEENT Head: Normocephalic, Atraumatic Eyes: Normal - Respiratory Respiratory status: No respiratory distress Chest status: Nontender Breath sounds: Normal. No: Rales, Rhonchi, Stridor, Wheezing Chest palpation: Normal - Cardiovascular Heart sounds: Normal auscultation Murmur: No - Abdominal Inspection: Normal Distension: No distension Bowel sounds: Normal Tenderness: Nontender Organomegaly: No organomegaly - Back Back: Normal, Tender. No: Deformity/step-off, CVA tenderness, Vertebra tenderness, Scars, Scoliosis - Extremities General upper extremity: Normal inspection, Nontender, Normal ROM, Normal strength General lower extremity: Tender, Edema, Normal color, Other - Comparing right and left lower extremities there may be a little slight difference from of the left to the right visually. 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 Most likely gravity dependent since she is on her feet a lot as a information security director. She is on nothing for fluid reduction.. No: Normal ROM, Normal strength, Normal temperature, Ismael's sign Hip: Normal, Nontender. No: Abrasion, Deformity, Dislocation, Ecchymosis, Instability, Laceration, Pain with ROM, Unable to bear weight Thigh: Normal, Nontender. No: Ecchymosis, Instability, Laceration, Unable to bear weight Knee: Tender, Pain with ROM, Patellar tendon intact, Unable to bear weight, Other - Examination of patient's left knee shows to be minimally tender to palpation pretty much circumferentially where a touch patient is sore. There is no ecchymosis no abrasions there is no deformities. Patient has a good popliteal pulse. There is normal movement of the patella. But tender to touch all the way around. Patient has flexion and extension but with moderate amount of discomfort and is unable to go from sitting to laying back because of the discomfort causes in the lower extremity.. No: Deformity, Dislocation, Drawer' s test instability, Ecchymosis, Instability, Joint effusion, Laceration, Laxity with valgus stress, Laxity with varus stress, Popliteal fossa tender Calf: Tender, Unable to bear weight. No: Deformity, Ecchymosis, Instability Ankle: Tender, Limited ROM, Unable to bear weight, Other - Examination of the ankle is similar to that of the knee. Patient has no swelling but tenderness to palpation circumferentially. The Achilles tendon is intact nontender at this point here she has flexion extension of the foot but again with discomfort. Rotation of the foot is also with discomfort. She has again no swelling at this time.. No: Abrasion, Deformity, Ecchymosis, Edema, Instability , Laceration Foot: Tender, Unable to bear weight, Other - Examination of the left foot shows again tenderness all areas. She has 2+ pedal pulse 2+ dorsalis pedal pulses. She has flexion-extension of the ankle and toes are normal. Questionable effort in attempting to flex and extend toes. She has strength against resistance. She has good cap refill in the nailbeds of the toes of the left foot.. No: Abrasion, Deformity, Ecchymosis, Edema, Instability, Laceration, Metatarsal compress. pain, Nail injury, Navicular tenderness, No evidence of FB , Puncture wound, Tender 5th metatarsal Course - Re-evaluation Re-evalutation: 08/09/18 10:42 Patient's x-rays were normal. She appeared much more calm after sitting here for a while. At this point we are going to put a knee immobilizer on an Oscar wrap her ankle. We get 1 of 3 possible diagnosis is a internal derangement of the knee and ankle strain or to just knee strain and ankle strain or 3 contusion from falling on the leg behind her to include the knee the leg and foot and ankle. In any event patient is going be nonweightbearing for 3 days after 3 days she will attempt to bear weight if still painful I am giving her the number to the orthopedics to call. If it is manageable and the pain is better she can advance activity as tolerated. I am also told her she return to ER if she has any concerns or problems. - Vital Signs Vital signs: Temp Pulse Resp BP Pulse Ox 97.8 F 97 20 177/92 H 96 08/09/18 09:17 08/09/18 09:17 08/09/18 09:17 08/09/18 09:17 08/09/18 09:17 Procedures - Immobilization Left Knee Time completed: 10:39 Pre-Proc Neuro Vasc Exam: Normal Immobilizer type: Oscar wrap, Knee immobilizer Performed by: RN Post-Proc Neuro Vasc Exam: Normal Alignment checked and good: Yes Notes: 08/09/18 10:39 Patient was placed in both the knee immobilizer and Oscar wrap was checked by myself the emergency room physician players assistant found to be in good position with good cap refill in the nailbeds of the toes of the left foot. Discharge - Discharge Clinical Impression: Internal derangement of knee Qualifiers: Laterality: left Qualified Code(s): M23.92 - Unspecified internal derangement of left knee Strain of knee and leg, left Qualifiers: Encounter type: initial encounter Qualified Code(s): S86.912A - Strain of unspecified muscle(s) and tendon(s) at lower leg level, left leg, initial encounter Left ankle strain Qualifiers: Encounter type: initial encounter Qualified Code(s): S96.912A - Strain of unspecified muscle and tendon at ankle and foot level, left foot, initial encounter Contusion of leg, left Qualifiers: Encounter type: initial encounter Qualified Code(s): S80.12XA - Contusion of left lower leg, initial encounter Condition: Stable Disposition: HOME, SELF-CARE Instructions: Sprained Knee ([facility]), Sprained Ankle ([facility]), Suspected Internal Knee Injury ([facility]) Additional Instructions: As we discussed looks as if this may just be a sprain strain of the knee leg ankle foot from the fall. I cannot rule out ligament or meniscus damage to the knee at this time. We are placing you in a knee immobilizer along with an Oscar wrap for safety sake. Nonweightbearing for 3 days after 3 days attempt to bear weight if still painful follow-up with an orthopedist. I have given you the name of the orthopedist intervention manager today he may contact his office to see if he can accommodate you. Ice to the areas 3 times a day. Medication as prescribed. Should you have any concerns or problems return to ER for recheck. Please do not sleep in the Oscar wrap as we discussed take it off before bed and reapplied before walking. If after 3 days the pain is improving you may get rid of the Oscar wrap and possibly purchase 1 of those Oscar socks at [employer] or [employer] much easier to put on take all. Prescriptions: Ibuprofen 800 mg PO TID #30 tablet Forms: Elevated Blood Pressure, Smoking Cessation Education, Parent Work Note Referrals: DEENA MARTINES MD [ACTIVE STAFF] - Follow up as needed
--- NOTE | 2018-08-09 10:15 | RADIOLOGY REPORT (SQ) ---
EXAM DESCRIPTION: ANKLE LEFT COMPLETE; FOOT LEFT COMPLETE COMPLETED DATE/TIME: 08/09/2018 10:05 am REASON FOR STUDY: fall COMPARISON: None. FINDINGS: Three views left ankle: No acute fracture. Chronic small corticated avulsion fragment of f the lateral malleolus. Talar dome intact. No joint effusion. Mild soft tissue swelling about the ankle. Three views left foot: Chronic well corticated accessory ossicles along the navicular medially. No fracture. Joints intact. Soft tissues unremarkable. TECHNICAL DOCUMENTATION: JOB ID: [id number] Reading location - IP/workstation name: [email or web address]
--- NOTE | 2018-08-09 10:15 | RADIOLOGY REPORT (SQ) ---
EXAM DESCRIPTION: ANKLE LEFT COMPLETE; FOOT LEFT COMPLETE COMPLETED DATE/TIME: 08/09/2018 10:05 am REASON FOR STUDY: fall COMPARISON: None. FINDINGS: Three views left ankle: No acute fracture. Chronic small corticated avulsion fragment of f the lateral malleolus. Talar dome intact. No joint effusion. Mild soft tissue swelling about the ankle. Three views left foot: Chronic well corticated accessory ossicles along the navicular medially. No fracture. Joints intact. Soft tissues unremarkable. TECHNICAL DOCUMENTATION: JOB ID: [id number] Reading location - IP/workstation name: [email or web address]
--- NOTE | 2018-08-09 10:17 | RADIOLOGY REPORT (SQ) ---
EXAM DESCRIPTION: KNEE LEFT 4 VIEW COMPLETED DATE/TIME: 08/09/2018 10:05 am REASON FOR STUDY: fall COMPARISON: None. NUMBER OF VIEWS: Four views left knee. LIMITATIONS: None. FINDINGS: There is no acute or significant bone, joint or soft tissue abnormality. OTHER: No other significant finding. IMPRESSION: NORMAL STUDY. TECHNICAL DOCUMENTATION: JOB ID: [id number] Reading location - IP/workstation name: [email or web address]
[2018-08-09 11:12] VITALS: BP 133/81
== END 2018-08-09 11:12 | disposition home or self-care (01) ==
LOC: ER 09:13
DX: S83.105A Unspecified dislocation of left knee, initial encounter (principal); S86.912A Strain of unspecified muscle(s) and tendon(s) at lower leg level, left leg, initial encounter; S96.912A Strain of unspecified muscle and tendon at ankle and foot level, left foot, initial encounter; W19.XXXA Unspecified fall, initial encounter; Y92.008 Other place in unspecified non-institutional (private) residence as the place of occurrence of the external cause; R60.0 Localized edema; F17.210 Nicotine dependence, cigarettes, uncomplicated; Z88.0 Allergy status to penicillin
CPT/HCPCS: 99283; 73610; 73630; 73564; L1830

== ENCOUNTER 2018-12-27 01:36 | Emergency (ER) | payer SELFPAY ==
[2018-12-27] MEDS ORDERED: CIPROFLOXACIN HCL/DEXAMETH OTIC DROP 7.5 ML AU ONE (02:31)
[2018-12-27] MEDS ORDERED: KETOROLAC TROMETHAMINE 60 MG/2 ML SDV IM ONE (02:31)
--- NOTE | 2018-12-27 02:37 | ER Document Report ---
ED General - General Chief Complaint: Ear Pain Stated Complaint: EARACHE Time Seen by Provider: 12/27/18 02:18 Notes: Patient is a 28-year-old female without chronic medical problems who presents with 2-3 days of fever, bilateral ear pain, sore throat and body aches. Describes the pain to her ears as being severe, throbbing and constant slightly worse in the left versus the right. Has trialed Tylenol with no relief of her symptoms. Nothing worsens her pain in the past. Has not seen her primary care physician regarding today's concerns. Denies headache, syncope, weakness, numbness or confusion. No difficulty breathing or swallowing. TRAVEL OUTSIDE OF THE [place] IN LAST 30 DAYS: No - Related Data Allergies/Adverse Reactions: Penicillins Allergy (Severe, Verified 08/09/18 09:14) Anaphylaxis all cillins Allergy (Severe, Uncoded 08/09/18 09:14) Anaphylaxis Past Medical History - General Information source: Patient - Social History Smoking Status: Never Smoker Frequency of alcohol use: None Drug Abuse: None Lives with: Spouse/Significant other Family History: Reviewed & Not Pertinent, CVA, DM, Malignancy Patient has suicidal ideation: No Patient has homicidal ideation: No Pulmonary Medical History: Reports: Hx Bronchitis Endocrine Medical History: Comment Only: Hx Diabetes Mellitus Type 2 - "prediabetic" Renal/ Medical History: Reports: Hx Ovarian Cysts. Denies: Hx Peritoneal Dialysis, Hx Pelvic Inflammatory Disease Psychiatric Medical History: Reports: Hx Depression Infectious Medical History: Denies: Hx HIV Past Surgical History: Reports: Hx Oral Surgery, Hx Tonsillectomy - Immunizations Immunizations up to date: Yes Hx Diphtheria, Pertussis, Tetanus Vaccination: Yes Review of Systems - Review of Systems Notes: Constitutional: Positive for fever. HENT: Positive for sore throat as well as bilateral ear pain. Eyes: Negative for visual changes. Cardiovascular: Negative for chest pain. Respiratory: Negative for shortness of breath. Gastrointestinal: Negative for abdominal pain, vomiting or diarrhea. Genitourinary: Negative for dysuria. Musculoskeletal: Negative for back pain. Skin: Negative for rash. Neurological: Negative for headaches, weakness or numbness. 10 point ROS negative except as marked above and in HPI. Physical Exam - Vital signs Vitals: Temp Pulse Resp BP Pulse Ox 98.9 F 89 20 151/74 H 97 12/27/18 01:54 12/27/18 01:54 12/27/18 01:54 12/27/18 01:54 12/27/18 01:54 Interpretation: Hypertensive Notes: PHYSICAL EXAMINATION: GENERAL: Appears moderately uncomfortable but in no acute distress HEAD: Atraumatic, normocephalic. EYES: Pupils equal round and reactive to light, extraocular movements intact, sclera anicteric, conjunctiva are normal. Right external ear canal mildly erythematous, somewhat inflamed and narrowed, mild erythema of the right tympanic membrane. Left tympanic membrane appears to have a spontaneous perforation with purulent drainage expressing from the tympanic membrane. ENT: nares patent, oropharynx clear without exudates. Moist mucous membranes. NECK: Normal range of motion, supple without lymphadenopathy LUNGS: Breath sounds clear to auscultation bilaterally and equal. No wheezes rales or rhonchi. HEART: Regular rate and rhythm without murmurs ABDOMEN: Soft, nontender, normoactive bowel sounds. No guarding, no rebound. No masses appreciated. EXTREMITIES: Normal range of motion, no pitting or edema. No cyanosis. NEUROLOGICAL: No focal neurological deficits. Moves all extremities spon taneously and on command. PSYCH: Normal mood, normal affect. SKIN: Warm, Dry, normal turgor, no rashes or lesions noted. Course - Re-evaluation Re-evalutation: 12/27/18 02:36 Presentation is most consistent with an acute otitis media. Patient she has bilateral external ear canal inflammation, effusions bilaterally although appe ars to have a possible spontaneous perforation on the left. Clinical history as well as exam is most consistent with this diagnosis. Based on history and examination do not suspect an acute meningitis, encephalitis, peritonsillar abscess, or retropharyngeal abscess. Patient is otherwise well in appearance, no acute distress. Vitals otherwise within normal limits. Patient is pen allergic, has been started on Ciprodex drops as well as Ceftin ear. At this time will discharge with return precautions and follow-up recommendations. Verbal discharge instructions given a the bedside to the parents and opportunity for questions given. Medication warnings reviewed. Patient is in agreement with this plan and has verbalized understanding of return precautions and the need for primary care follow-up in the next 24-72 hours. - Vital Signs Vital signs: Temp Pulse Resp BP Pulse Ox 98.9 F 89 20 151/74 H 97 12/27/18 01:54 12/27/18 01:54 12/27/18 01:54 12/27/18 01:54 12/27/18 01:54 Discharge - Discharge Clinical Impression: Bilateral otitis media with effusion, Left otitis media with spontaneous rupture of eardrum Condition: Good Disposition: HOME, SELF-CARE Additional Instructions: You were seen today for ear pain and have an acute ear infection. Please take the antibiotic that has been prescribed until it is completed even if you are feeling better before you have finished all the antibiotics. Please also apply the eardrops to your ear 4 drops per ear twice daily for 7 days. For your pain: Take ibuprofen 600 mg and acetaminophen 1000 mg every 6 hours together as needed for pain. Return if you have worsening of your pain, loss of hearing in the affected ear, worsening facial pain, headaches, pass out, or any other symptoms that are worrisome to you. Prescriptions: Cefdinir 300 mg PO BID #14 capsule
[2018-12-27 02:54] VITALS: BP 147/72
== END 2018-12-27 02:55 | disposition home or self-care (01) ==
LOC: ER 01:36
DX: H65.93 Unspecified nonsuppurative otitis media, bilateral (principal); H72.92 Unspecified perforation of tympanic membrane, left ear; J02.9 Acute pharyngitis, unspecified; H92.03 Otalgia, bilateral; R50.9 Fever, unspecified; M79.10 Myalgia, unspecified site; E11.9 Type 2 diabetes mellitus without complications
CPT/HCPCS: 99282; 96372; J1885; J3490

== ENCOUNTER 2019-01-24 12:17 | Emergency (ER) | payer SELFPAY ==
[2019-01-24 13:36] LABS: AMORPHOUS SEDIMENT,URINE TRACE /HPF; APPEARANCE,URINE SLIGHTLY-CLOUDY; BILIRUBIN,URINE NEGATIVE (NEGATIVE); COLOR,URINE YELLOW; GLUCOSE, URINE NEGATIVE (NEGATIVE); KETONES,URINE NEGATIVE (NEGATIVE); LEUKOCYTE ESTERASE,URINE NEGATIVE (NEGATIVE); NITRITE,URINE POSITIVE (NEGATIVE); PROTEIN,URINE 30 mg/dL (NEGATIVE); URINE SPECIFIC GRAVITY 1.021; UROBILINOGEN,URINE NEGATIVE mg/dL (<2.0)
[2019-01-24 14:10] LABS: ALANINE AMINOTRANSFERASE 23 U/L (9-52); ALKALINE PHOSPHATASE 89 U/L (38-126); ANION GAP 10 (5-19); ASPARTATE AMINO TRANSFERASE 21 U/L (14-36); BILIRUBIN,DIRECT 0.2 mg/dL (0.0-0.4); BILIRUBIN,TOTAL 0.4 mg/dL (0.2-1.3); BLOOD UREA NITROGEN 13 mg/dL (7-20); CALCIUM 9.3 mg/dL (8.4-10.2); CARBON DIOXIDE 24 mmol/L (22-30); CHLORIDE 107 mmol/L (98-107); GLUCOSE 87 mg/dL (75-110); POTASSIUM 4.2 mmol/L (3.6-5.0); SODIUM 140.7 mmol/L (137-145); TOTAL PROTEIN 6.8 g/dL (6.3-8.2)
[2019-01-24 14:13] LABS: ABSOLUTE BASOPHILS # (AUTO) 0.1 10^3/uL (0.0-0.2); ABSOLUTE EOSINOPHILS # (AUTO) 0.3 10^3/uL (0.0-0.6); ABSOLUTE LYMPHOCYTES (AUTO) 1.8 10^3/uL (0.5-4.7); ABSOLUTE MONOCYTES (AUTO) 0.5 10^3/uL (0.1-1.4); ABSOLUTE NEUT (AUTO) 6.7 10^3/uL (1.7-8.2); BASOPHILS % (AUTO) 0.6 % (0-2); EOSINOPHILS % (AUTO) 2.8 % (0-6); HEMATOCRIT 41.3 % (36.0-47.0); HEMOGLOBIN 14.2 g/dL (12.0-15.5); LYMPHOCYTES % (AUTO) 19.2 % (13-45); MEAN CORPUSCULAR HEMOGLOBIN 29.3 pg (27.0-33.4); MEAN CORPUSCULAR HGB CONC 34.5 g/dL (32.0-36.0); MEAN CORPUSCULAR VOLUME 85 fl (80-97); MONOCYTES % (AUTO) 5.8 % (3-13); PLATELET COUNT 224 10^3/uL (150-450); RED BLOOD COUNT 4.86 10^6/uL (3.72-5.28); RED CELL DISTRIBUTION WIDTH 13.6 % (11.5-14.0); SEGMENTED NEUTROPHILS % (AUTO) 71.6 % (42-78); TOTAL CELLS COUNTED % (AUTO) 100 %; WHITE BLOOD COUNT 9.3 10^3/uL (4.0-10.5)
[2019-01-24] MEDS ORDERED: ONDANSETRON HCL INJ/PF 4 MG/2 ML SDV IV ONE (14:30)
[2019-01-24] MEDS ORDERED: FENTANYL CITRATE INJ/PF 100 MCG/2 ML AMPUL IV ONE (14:30)
--- NOTE | 2019-01-24 14:35 | ER Document Report ---
ED GI/ - General Chief Complaint: Abdominal Pain Stated Complaint: ABDOMINAL PAIN Time Seen by Provider: 01/24/19 14:16 Mode of Arrival: Ambulatory Information source: Patient Notes: Patient is a 28-year-old female who presents to the emergency department with chief complaint of sudden onset left lower quadrant pain that started this when she woke up. She reports associated nausea but denies any vomiting or diarrhea. Patient reports history of ovarian cyst but states she has not had one for like this before. She describes the pain as a sharp stabbing pain. Patient is on her menstrual cycle currently. Denies any dysuria, urinary frequency or CVA tenderness. Patient denies any chronic medical conditions. TRAVEL OUTSIDE OF THE [place] IN LAST 30 DAYS: No - Related Data Allergies/Adverse Reactions: Penicillins Allergy (Severe, Verified 01/24/19 12:18) Anaphylaxis all cillins Allergy (Severe, Uncoded 01/24/19 12:18) Anaphylaxis Past Medical History - General Information source: Patient - Social History Smoking Status: Never Smoker Frequency of alcohol use: None Drug Abuse: None Family History: Reviewed & Not Pertinent, CVA, DM, Malignancy Patient has suicidal ideation: No Patient has homicidal ideation: No Pulmonary Medical History: Reports: Hx Bronchitis Endocrine Medical History: Comment Only: Hx Diabetes Mellitus Type 2 - "prediabetic" Renal/ Medical History: Reports: Hx Ovarian Cysts. Denies: Hx Peritoneal Dialysis, Hx Pelvic Inflammatory Disease Psychiatric Medical History: Reports: Hx Depression Infectious Medical History: Denies: Hx HIV Past Surgical History: Reports: Hx Oral Surgery, Hx Tonsillectomy - Immunizations Immunizations up to date: Yes Hx Diphtheria, Pertussis, Tetanus Vaccination: Yes Review of Systems - Review of Systems Constitutional: No symptoms reported EENT: No symptoms reported Cardiovascular: No symptoms reported Respiratory: No symptoms reported Gastrointestinal: Abdominal pain, Nausea. denies: Diarrhea, Vomiting, Constipation Genitourinary: No symptoms reported Female Genitourinary: No symptoms reported Musculoskeletal: No symptoms reported Skin: No symptoms reported Hematologic/Lymphatic: No symptoms reported Neurological/Psychological: No symptoms reported Physical Exam - Vital signs Vitals: Temp Pulse Resp BP Pulse Ox 97.4 F 92 22 H 150/89 H 96 01/24/19 12:22 01/24/19 12:22 01/24/19 12:22 01/24/19 12:22 01/24/19 12:22 - Notes Notes: PHYSICAL EXAMINATION: GENERAL: Well-appearing, well-nourished and in no acute distress. HEAD: Atraumatic, normocephalic. EYES: Pupils equal round and reactive to light, extraocular movements intact, conjunctiva are normal. ENT: Nares patent, oropharynx clear without exudates. Moist mucous membranes. NECK: Normal range of motion, supple without lymphadenopathy LUNGS: Breath sounds clear to auscultation bilaterally and equal. No wheezes rales or rhonchi. HEART: Regular rate and rhythm without murmurs ABDOMEN: Soft, nondistended abdomen. Tenderness to palpation to left upper and lower quadrants. No guarding, no rebound. No masses appreciated. Female : Left suprapubic pain with palpation. No CVA tenderness. Musculoskeletal: Normal range of motion, no pitting or edema. No cyanosis. NEUROLOGICAL: Cranial nerves grossly intact. Normal speech, normal gait. Normal sensory, motor exams PSYCH: Normal mood, normal affect. SKIN: Warm, Dry, normal turgor, no rashes or lesions noted. Course - Re-evaluation Re-evalutation: CBC and CMP are unremarkable. Transvaginal ultrasound with no acute findings. No evidence of ovarian torsion or cysts. Patient does have positive nitrates in her urine, will treat her for urinary tract infection. Culture pending. Patient discharged home in stable condition. Strict ED return precautions were discussed and patient verbalized understanding. - Vital Signs Vital signs: Temp Pulse Resp BP Pulse Ox 98.2 F 65 16 134/79 H 97 01/24/19 16:03 01/24/19 16:03 01/24/19 16:03 01/24/19 16:03 01/24/19 16:03 - Laboratory Result Diagrams: 01/24/19 13:35 01/24/19 13:35 Laboratory results interpreted by me: 01/24/19 13:15 Urine Protein 30 H Urine Blood LARGE H Urine Nitrite POSITIVE H Discharge - Discharge Clinical Impression: Urinary tract infection Qualifiers: Urinary tract infection type: site unspecified Hematuria presence: with hematuria Qualified Code(s): N39.0 - Urinary tract infection, site not specified Condition: Stable Disposition: HOME, SELF-CARE Additional Instructions: Your urine shows findings consistent with a urinary tract infection. Your blood work was all normal. The transvaginal ultrasound did not show any obvious abnormalities. Please take all the antibiotics as directed even if your symptoms have improved. Please take ibuprofen 600 mg every 6 hours for the pain and cramping. You may use the Percocet pain medication for severe pain only as directed. Take the nausea medication as prescribed. Please follow-up with your primary care physician as needed. Return to emergency room if you develop fever >101F, persistent vomiting, become lethargic, have severe pain in your sides, or any other symptoms that are concerning to you. Prescriptions: Oxycodone HCl/Acetaminophen [Percocet 5-325 mg Tablet] 1 tab PO Q4H PRN #12 tablet PRN Reason: Promethazine HCl [Phenergan 25 mg Tablet] 1 - 2 tab PO Q6H PRN #15 tablet PRN Reason: Sulfamethoxazole/Trimethoprim [Bactrim Ds Tablet] 1 tab PO BID #14 tablet
--- NOTE | 2019-01-24 15:31 | RADIOLOGY REPORT (SQ) ---
EXAM DESCRIPTION: U/S NON OB PEL TV W/DOPPLER COMPLETED DATE/TIME: 01/24/2019 3:21 pm REASON FOR STUDY: eval for ovarian cyst, LLQ pain COMPARISON: 03/12/2013 TECHNIQUE: Dynamic and static grayscale images acquired of the pelvis via transvaginal approach and recorded on PACS. Additional selected color Doppler and spectral images recorded. LIMITATIONS: Nonvisualization of the left ovary. FINDINGS: UTERUS: Contour normal. No mass. ENDOMETRIAL STRIPE: No focal or generalized thickening. No masses. CERVIX: No nabothian cysts. RIGHT OVARY AND DOPPLER: Was not discretely identified. LEFT OVARY AND DOPPLER: Ovary not visualized. FREE FLUID: A small amount of simple appearing free fluid is seen within the pelvic cul-de-sac. OTHER: No other significant finding. MEASUREMENTS: UTERUS: 7.8 x 4.7 x 5.5 cm ENDOMETRIAL STRIPE: 0.7 cm RIGHT OVARY: 2.8 x 2.4 x 2.7 cm LEFT OVARY: Not visualized. IMPRESSION: The left ovary was not discretely identified. Normal sonographic appearance of the uter us and right ovary. TECHNICAL DOCUMENTATION: JOB ID: [id number]- All Rights Reserved Rev-03/28 Reading location - IP/workstation name: [email or web address]
[2019-01-24 16:05] VITALS: BP 134/79
== END 2019-01-24 16:47 | disposition home or self-care (01) ==
LOC: ER 12:17
DX: N39.0 Urinary tract infection, site not specified (principal); R31.9 Hematuria, unspecified; R10.32 Left lower quadrant pain; R10.812 Left upper quadrant abdominal tenderness; R10.814 Left lower quadrant abdominal tenderness; R11.0 Nausea; Z87.42 Personal history of other diseases of the female genital tract; Z88.0 Allergy status to penicillin; Z87.892 Personal history of anaphylaxis
CPT/HCPCS: 99284; 96374; 96375; 36415; 87086; 83690; 85025; 81025; 80053; 81001; 76830; 93976; J3010; J2405

== ENCOUNTER 2020-01-17 11:19 | Inpatient (IN) | payer SELFPAY ==
[2020-01-17] MEDS ORDERED: IBUPROFEN 800 MG TABLET PO ONE (11:38)
[2020-01-17] MEDS ORDERED: ONDANSETRON 4 MG TAB.RAPDIS PO ONE (11:39)
--- NOTE | 2020-01-17 11:41 | ER Document Report ---
ED Medical Screen (RME) - General Chief Complaint: Fever Stated Complaint: HEADACHE/NAUSEA/SORE THROAT Time Seen by Provider: 01/17/20 11:33 Mode of Arrival: Wheelchair Information source: Patient Notes: 29-year-old female presents emergency department with sore throat neck pain nausea. Reports boyfriend had strep a few weeks ago. No complaints of vomiting. Patient does have cough. Has not traveled recently cannot receive the flu vaccine due to allergy. Patient with heart rate of 155 and temp of 100.3.2 upon arrival. Last took Tylenol cold medicine sometime early this morning. Patient able to put chin to chest without problems. I have greeted and performed a rapid initial assessment of this patient. A comprehensive ED assessment and evaluation of the patient, analysis of test results and completion of the medical decision making process will be conducted by additional ED providers. TRAVEL OUTSIDE OF THE [place] IN LAST 30 DAYS: No - Related Data Allergies/Adverse Reactions: Penicillins Allergy (Severe, Verified 01/24/19 12:18) Anaphylaxis all cillins Allergy (Severe, Uncoded 01/24/19 12:18) Anaphylaxis Past Medical History - Social History Chew tobacco use (# tins/day): No Frequency of alcohol use: None Drug Abuse: None Pulmonary Medical History: Reports: Hx Bronchitis Endocrine Medical History: Comment Only: Hx Diabetes Mellitus Type 2 - "prediabetic" Renal/ Medical History: Reports: Hx Ovarian Cysts. Denies: Hx Peritoneal Dialysis, Hx Pelvic Inflammatory Disease Psychiatric Medical History: Reports: Hx Depression Infectious Medical History: Denies: Hx HIV Past Surgical History: Reports: Hx Oral Surgery, Hx Tonsillectomy - Immunizations Immunizations up to date: Yes Hx Diphtheria, Pertussis, Tetanus Vaccination: Yes
[2020-01-17] MEDS ORDERED: NORMAL SALINE 1000 ML 1,000 ML IV ONE ×3 (11:47→14:45)
[2020-01-17 12:17] LABS: A TYPE INFLUENZA AG NEGATIVE (NEGATIVE); B INFLUENZA AG NEGATIVE (NEGATIVE)
[2020-01-17 12:32] LABS: VENOUS BLOOD BASE EXCESS -1.4 mmol/L; VENOUS BLOOD HCO3 22.8 mmol/L (20-32); VENOUS BLOOD PCO2 36.8 mmHg (35-63); VENOUS BLOOD PH 7.41 (7.30-7.42)
[2020-01-17] MEDS ORDERED: AZITHROMYCIN 250 MG TABLET PO ONE (12:33)
[2020-01-17] MEDS ORDERED: CLINDAMYCIN 900 MG/D5W RTU 900 MG/50 ML RTUPB IV ONE (12:33)
[2020-01-17 12:39] LABS: HEMATOCRIT 43.8 % (36.0-47.0); HEMOGLOBIN 14.8 g/dL (12.0-15.5); MEAN CORPUSCULAR HEMOGLOBIN 28.7 pg (27.0-33.4); MEAN CORPUSCULAR HGB CONC 33.8 g/dL (32.0-36.0); MEAN CORPUSCULAR VOLUME 85 fl (80-97); PLATELET COUNT 205 10^3/uL (150-450); RED BLOOD COUNT 5.16 10^6/uL (3.72-5.28); RED CELL DISTRIBUTION WIDTH 13.7 % (11.5-14.0); WHITE BLOOD COUNT 17.6 10^3/uL (4.0-10.5)
[2020-01-17 12:49] LABS: ALBUMIN 4.1 g/dL (3.5-5.0); ALKALINE PHOSPHATASE 91 U/L (38-126); ANION GAP 11 (5-19); ASPARTATE AMINO TRANSFERASE 24 U/L (14-36); BILIRUBIN,DIRECT 0.3 mg/dL (0.0-0.4); BILIRUBIN,TOTAL 0.4 mg/dL (0.2-1.3); BLOOD UREA NITROGEN 11 mg/dL (7-20); CALCIUM 9.1 mg/dL (8.4-10.2); CARBON DIOXIDE 23 mmol/L (22-30); CHLORIDE 103 mmol/L (98-107); GLUCOSE 129 mg/dL (75-110); POTASSIUM 3.9 mmol/L (3.6-5.0); TOTAL PROTEIN 7.7 g/dL (6.3-8.2)
[2020-01-17 13:11] LABS: ABSOLUTE LYMPHOCYTES# (MANUAL) 1.2 10^3/uL (0.5-4.7); ABSOLUTE MONOCYTES # (MANUAL) 1.1 10^3/uL (0.1-1.4); BAND NEUTROPHILS % (MANUAL) 1 % (3-5); BASOPHILS % (MANUAL) 0 % (0-2); EOSINOPHILS % (MANUAL) 0 % (0-6); LYMPHOCYTES % (MANUAL) 7 % (13-45); MONOCYTES % (MANUAL) 6 % (3-13); RBC MORPHOLOGY COMMENT NORMO-CYTIC/CHROMIC; SEGMENTED NEUTROPHILS % (MAN) 86 % (42-78); TOTAL CELLS COUNTED 100
[2020-01-17 13:12] LABS: PLATELET COMMENT ADEQUATE
[2020-01-17 14:39] LABS: APPEARANCE,URINE SLIGHTLY-CLOUDY; BILIRUBIN,URINE NEGATIVE (NEGATIVE); COLOR,URINE YELLOW; GLUCOSE, URINE NEGATIVE (NEGATIVE); KETONES,URINE NEGATIVE (NEGATIVE); LEUKOCYTE ESTERASE,URINE MODERATE (NEGATIVE); NITRITE,URINE NEGATIVE (NEGATIVE); PROTEIN,URINE NEGATIVE (NEGATIVE); URINE SPECIFIC GRAVITY 1.014; UROBILINOGEN,URINE NEGATIVE mg/dL (<2.0)
[2020-01-17] MEDS ORDERED: ACETAMINOPHEN 325 MG TABLET PO ONE (14:45)
[2020-01-17] MEDS ORDERED: VANCOMYCIN HCL INJ 1000 MG VIAL IV ONE (14:58)
--- NOTE | 2020-01-17 15:34 | RADIOLOGY REPORT (SQ) ---
EXAM DESCRIPTION: CHEST SINGLE VIEW COMPLETED DATE/TIME: 01/17/2020 2:10 pm REASON FOR STUDY: TACHYCARDIA/FEVER COMPARISON: 09/10/2017 EXAM PARAMETERS: NUMBER OF VIEWS: One view. TECHNIQUE: Single frontal radiographic view of the chest acquired. RADIATION DOSE: NA LIMITATIONS: None. FINDINGS: LUNGS AND PLEURA: No opacities, masses or pneumothorax. No pleural effusion. MEDIASTINUM AND HILAR STRUCTURES: No masses. Contour normal. HEART AND VASCULAR STRUCTURES: Heart normal in size. Normal vasculature. BONES: No acute findings. HARDWARE: None in the chest. OTHER: No other significant finding. IMPRESSION: NO ACUTE RADIOGRAPHIC FINDING IN THE CHEST. TECHNICAL DOCUMENTATION: JOB ID: [id number] 2010 [employer]- All Rights Reserved Reading location - IP/workstation name: [email or web address]
--- NOTE | 2020-01-17 15:53 | ER Document Report ---
Entered by UMESH STOVALL SCRIBE 01/17/20 1230 Acting as scribe for:SOHAIL STODDARD MD ED General - General Chief Complaint: Fever Stated Complaint: HEADACHE/NAUSEA/SORE THROAT Time Seen by Provider: 01/17/20 11:33 Mode of Arrival: Wheelchair Information source: Patient Notes: This 29-year-old female patient presents to the emergency department today with complaints of a sore throat which began yesterday. Patient mentions bilateral leg swelling with associated redness in her right lower extremity which she states has been present for several days. 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 Patient has had nausea and a headache as well. Patient denies any vomiting, diarrhea, abdominal pain. TRAVEL OUTSIDE OF THE [place] IN LAST 30 DAYS: No - Related Data Allergies/Adverse Reactions: Penicillins Allergy (Severe, Verified 01/17/20 13:52) Anaphylaxis Past Medical History - General Information source: Patient - Social History Smoking Status: Never Smoker Cigarette use (# per day): No Chew tobacco use (# tins/day): No Frequency of alcohol use: None Drug Abuse: None Family History: Reviewed & Not Pertinent, CVA, DM, Malignancy Patient has suicidal ideation: No Patient has homicidal ideation: No Pulmonary Medical History: Reports: Hx Bronchitis Endocrine Medical History: Comment Only: Hx Diabetes Mellitus Type 2 - "prediabetic" Renal/ Medical History: Reports: Hx Ovarian Cysts. Denies: Hx Peritoneal Dialysis, Hx Pelvic Inflammatory Disease Psychiatric Medical History: Reports: Hx Depression Infectious Medical History: Denies: Hx HIV Past Surgical History: Reports: Hx Oral Surgery, Hx Tonsillectomy - Immunizations Immunizations up to date: Yes Hx Diphtheria, Pertussis, Tetanus Vaccination: Yes Review of Systems - Review of Systems Constitutional: No symptoms reported EENT: See HPI, Throat pain Cardiovascular: No symptoms reported Respiratory: No symptoms reported Gastrointestinal: See HPI, Nausea Genitourinary: No symptoms reported Female Genitourinary: No symptoms reported Musculoskeletal: See HPI, Leg swelling Skin: See HPI, Change in color Hematologic/Lymphatic: No symptoms reported Neurological/Psychological: See HPI, Headaches -: Yes All other systems reviewed and negative Physical Exam - Vital signs Vitals: Temp Pulse Resp BP Pulse Ox 103.2 F H 148 H 24 H 136/73 H 96 01/17/20 11:35 01/17/20 11:35 01/17/20 11:35 01/17/20 11:35 01/17/20 11:35 - Notes Notes: Physical Exam: General: Alert, morbidly obese. HEENT: Normocephalic. Atraumatic. PERRL. Extraocular movements intact. Posterior oropharynx erythema. Neck: Supple. Non-tender. Respiratory: No respiratory distress. Clear and equal breath sounds bilaterally. Cardiovascular: Tachycardic, regular rhythm. Abdominal: Morbidly obese. Non-tender. No distension. Normal Bowel Sounds. Back: No gross abnormalities. Extremities: Moves all four extremities. Upper extremities: Normal inspection. Normal ROM. Lower extremities: RLE erythema with pustules. Neurological: Normal cognition. AAOx4. Normal speech. Psychological: Normal affect. Normal Mood. Skin: See RLE exam Course - Re-evaluation Re-evalutation: 01/17/20 14:50 Patient resting in bed still warm to touch and sinus tachycardia around 118 117. Improvement in cellulitis of the right lower extremity after IV clindamycin. 01/17/20 15:47 Patient's temperature is beginning to rise over 100 at this point in time. Patient still tachycardic around 110. Chest x-ray has been done does not show any acute process of infiltrates. Discussed with patient due to her elevated white blood cell count cellulitis of her right lower extremity sinus tachycardia and infection noted in her right lower leg cellulitis and a urinary tract infection as well and acute pharyngitis. She is being admitted to the hosp italist service. 01/17/20 15:50 Pending results at this time include a d-dimer and ultrasound of right lower extremity. - Vital Signs Vital signs: Temp Pulse Resp BP Pulse Ox 99.2 F 148 H 23 H 142/62 H 93 01/17/20 13:24 01/17/20 11:35 01/17/20 12:31 01/17/20 12:31 01/17/20 12:31 - Laboratory Result Diagrams: 01/17/20 12:13 01/17/20 12:13 Laboratory results interpreted by me: 01/17/20 01/17/20 01/17/20 12:13 12:13 12:13 WBC 17.6 H Seg Neuts % (Manual) 86 H Band Neutrophils % 1 L Lymphocytes % (Manual) 7 L Abs Neuts (Manual) 15.3 H D-Dimer 0.52 H Sodium 136.6 L Glucose 129 H Urine Blood Ur Leukocyte Esterase 01/17/20 14:15 WBC Seg Neuts % (Manual) Band Neutrophils % Lymphocytes % (Manual) Abs Neuts (Manual) D-Dimer Sodium Glucose Urine Blood SMALL H Ur Leukocyte Esterase MODERATE H Patient has an elevated white blood cell count 17.6 consistent with infection and inflammation. Patient has cellulitis of her right lower extremity pharyngitis with erythematous pharynx and a mild urinary tract infection. - Diagnostic Test Radiology reviewed: Image reviewed, Reports reviewed Radiology results interpreted by me: 01/17/20 15:50 Chest x-ray read by radiologist shows no acute process no infiltrates. - EKG Interpretation by Me Additional EKG results interpreted by me: 01/17/20 14:48 Twelve-lead EKG done today 11 AM. Shows sinus tachycardia rate of around 130s no other acute ST-T changes. Discharge - Discharge Clinical Impression: Cellulitis of leg, right, Leukocytosis (leucocytosis), Fever, Pharyngitis, Urinary tract infection Condition: Fair Disposition: ADMITTED INPATIENT Admitting Provider: Vadim (Hospitalist) Unit Admitted: Medical Floor I personally performed the services described in the documentation, reviewed and edited the documentation which was dictated to the scribe in my presence, and it accurately records my words and actions.
[2020-01-17] MEDS ORDERED: NORMAL SALINE 1000 ML 1,000 ML IV PRN (15:56)
[2020-01-17] MEDS ORDERED: IPRATROPIUM/ALBUTEROL 0.5-2.5 MG/3 ML AMPUL NEB PRN (15:56)
[2020-01-17] MEDS ORDERED: VANCOMYCIN HCL 0 MG in DEXTROSE 5%-WATER 250 ML IV NR (16:00)
--- NOTE | 2020-01-17 16:12 | EKG REPORT ---
SEVERITY:- BORDERLINE ECG - SINUS TACHYCARDIA PROBABLE LEFT ATRIAL ABNORMALITY BORDERLINE T ABNORMALITIES, INFERIOR LEADS : Confirmed by: Duane Matamoros MD 17-Jan-2020 16:11:36
--- NOTE | 2020-01-17 17:32 | PDOC H&P ---
History of Present Illness Admission Date/PCP: 01/17/20 16:23 History of Present Illness: SID LINTON is a 29 year old female past medical history of prediabetes, depression, morbid obesity, presenting to ED complaining of sore throat, nausea, and right lower extremity anterior garcia erythema and swelling. Patient is stating that while sleeping she tends to rub her feet together, three days ago she noticed some blisters on her right and left toes while waking up, the following day noticed some painful, expanding, erythema on anterior garcia of the right lower extremity, associated with nausea, shortness of breath, sore throat, mild non productive cough, fever and chills. Denies any recent travel, trauma, tick bites, bug bites, animal bites. Denies any chest pain, vomiting, abdominal pain, diarrhea, constipation or any urinary symptoms. Past Medical History Pulmonary Medical History: Reports: Bronchitis Endocrine Medical History: Comment Only: Diabetes Mellitus Type 2 - "prediabetic" Psychiatric Medical History: Reports: Depression Infectious Medical History: Denies: HIV Past Surgical History Past Surgical History: Reports: Tonsillectomy Social History Smoking Status: Never Smoker Electronic Cigarette use?: No Family History Family History: Reviewed & Not Pertinent, CVA, DM, Malignancy Parental Family History Reviewed: Yes Children Family History Reviewed: Yes Sibling(s) Family History Reviewed.: Yes Medication/Allergy Home Medications: Doxycycline Hyclate 100 mg PO BID #14 capsule 07/06/16 Naproxen 500 mg PO Q8 #30 tablet 11/09/16 Hydrocodone/Acetaminophen [[place] 5-325 mg Tablet] 2 tab PO Q4 PRN #20 tab 11/14/16 Promethazine HCl 25 mg PO Q8 PRN #30 tablet 11/14/16 Azithromycin [Zithromax 250 mg Tablet] 250 mg PO DAILY #4 tablet 05/09/17 Desloratadine [Clarinex] 5 mg PO DAILY #30 tablet 05/09/17 Ibuprofen 800 mg PO Q8HP PRN #30 tablet 05/09/17 Oxycodone HCl/Acetaminophen [Percocet 5-325 mg Tablet] 1 tab PO Q4H PRN #15 tablet 08/28/17 Sulfamethoxazole/Trimethoprim [Bactrim Ds Tablet] 1 each PO BID #20 tablet 08/28/17 Tobramycin Sulfate [Tobrex 0.3% Oph Soln 5 ml] 3 drop LFT_EAR Q4H #1 bottle 08/28/17 Baclofen [Baclofen 10 mg Tablet] 5 - 10 mg PO BID PRN #10 tablet 11/07/17 Naproxen 500 mg PO BID PRN #30 tablet 11/07/17 Cefdinir [Omnicef 300 mg Capsule] 1 cap PO BID #14 capsule 12/10/17 Ciprofloxacin HCl/Dexameth [Ciprodex Otic Suspension 7.5 ml Bottle] 4 drop OT BID #1 bottle 12/10/17 Albuterol Sulfate [Ventolin Hfa] 2 puff IH Q4HP PRN #17 gm 07/18/18 Ibuprofen 800 mg PO TID #30 tablet 08/09/18 Cefdinir 300 mg PO BID #14 capsule 12/27/18 Oxycodone HCl/Acetaminophen [Percocet 5-325 mg Tablet] 1 tab PO Q4H PRN #12 tablet 01/24/19 Promethazine HCl [Phenergan 25 mg Tablet] 1 - 2 tab PO Q6H PRN #15 tablet 01/24/19 Sulfamethoxazole/Trimethoprim [Bactrim Ds Tablet] 1 tab PO BID #14 tablet 01/24/19 Allergies/Adverse Reactions: Penicillins Allergy (Severe, Verified 01/17/20 13:52) Anaphylaxis Physical Exam Vital Signs: Temp Pulse Resp BP Pulse Ox 100.6 F H 148 H 18 128/57 H 94 01/17/20 15:56 01/17/20 11:35 01/17/20 16:31 01/17/20 16:31 01/17/20 16:31 Intake & Output 01/16/20 01/17/20 01/18/20 05:59 06:59 06:59 Intake Total 2049 Balance 2049 Weight 153.2 kg General appearance: PRESENT: morbidly obese Head exam: PRESENT: atraumatic, normocephalic Respiratory exam: PRESENT: clear to auscultation nick. ABSENT: rales, rhonchi, wheezes Cardiovascular exam: PRESENT: RRR. ABSENT: diastolic murmur, rubs, systolic murmur GI/Abdominal exam: PRESENT: normal bowel sounds, soft. ABSENT: distended, guarding, mass, organolmegaly, rebound, tenderness Extremities exam: PRESENT: full ROM. ABSENT: calf tenderness, clubbing, pedal edema Musculoskeletal exam: PRESENT: tenderness, other - Right anterior garcia erythema and tenderness, 15 x 15 cm, vascularly intact. Right second, third toe posterior aspect scabs, left foot third toe posterior aspect scab Neurological exam: PRESENT: alert, awake, oriented to person, oriented to place, oriented to time, oriented to situation, CN II-XII grossly intact. ABSENT: motor sensory deficit Results Laboratory Results: 01/17/20 12:13 01/17/20 12:13 01/17/20 01/17/20 01/17/20 12:13 12:13 12:13 WBC 17.6 H RBC 5.16 Hgb 14.8 Hct 43.8 MCV 85 MCH 28.7 MCHC 33.8 RDW 13.7 Plt Count 205 Seg Neutrophils % Not Reportable VBG pH VBG pCO2 VBG HCO3 VBG Base Excess Sodium 136.6 L Potassium 3.9 Chloride 103 Carbon Dioxide 23 Anion Gap 11 BUN 11 Creatinine 0.61 Est GFR ( Amer) > 60 Glucose 129 H Lactic Acid 1.8 Calcium 9.1 Total Bilirubin 0.4 AST 24 Alkaline Phosphatase 91 Total Protein 7.7 Albumin 4.1 Serum HCG, Qual Urine Color Urine Appearance Urine pH Ur Specific [place] Urine Protein Urine Glucose (UA) Urine Ketones Urine Blood Urine Nitrite Ur Leukocyte Esterase Urine WBC (Auto) Urine RBC (Auto) 01/17/20 01/17/20 01/17/20 12:13 12:13 14:15 WBC RBC Hgb Hct MCV MCH MCHC RDW Plt Count Seg Neutrophils % VBG pH 7.41 VBG pCO2 36.8 VBG HCO3 22.8 VBG Base Excess -1.4 Sodium Potassium Chloride Carbon Dioxide Anion Gap BUN Creatinine Est GFR ( Amer) Glucose Lactic Acid Calcium Total Bilirubin AST Alkaline Phosphatase Total Protein Albumin Serum HCG, Qual NEGATIVE Urine Color YELLOW Urine Appearance SLIGHTLY-CLOUDY Urine pH 6.0 Ur Specific [place] 1.014 Urine Protein NEGATIVE Urine Glucose (UA) NEGATIVE Urine Ketones NEGATIVE Urine Blood SMALL H Urine Nitrite NEGATIVE Ur Leukocyte Esterase MODERATE H Urine WBC (Auto) 51 Urine RBC (Auto) 4 Impressions: Chest X-Ray 01/17/20 14:49 IMPRESSION: NO ACUTE RADIOGRAPHIC FINDING IN THE CHEST. Assessment and Plan - Diagnosis (1) Cellulitis of leg, right Is this a current diagnosis for this admission?: Yes Plan: Right anterior garcia erythema, swelling and tenderness. Admit to floor, empiric IV antibiotics, wound care, wound culture and blood cultures. Transition to p.o. antibiotic based on clinical improvement at culture results. (2) Morbid obesity Is this a current diagnosis for this admission?: Yes Plan: BMI 45.8. We will check TSH. Diet and lifestyle modification recommended. (3) Prediabetes Is this a current diagnosis for this admission?: Yes Plan: Patient gives history of prediabetes. No A1c available. We will obtain A1c. Diabetic diet. Sliding scale insulin. Follow-up A1c. (4) Pharyngitis Is this a current diagnosis for this admission?: Yes Plan: Likely viral. Influenza type A/B negative. Rapid strep negative. Supportive measures. (5) Urinary tract infection Qualifiers: Urinary tract infection type: acute cystitis Is this a current diagnosis for this admission?: Yes Plan: Likely due to gram-negative rods including E. coli. Continue empiric IV antibiotics. Switch to p.o. once culture available.
[2020-01-17] MEDS ORDERED: DEXTROSE 40% GEL 15 GM TUBE PO PRN ×2 (17:33)
[2020-01-17] MEDS ORDERED: GLUCAGON,HUMAN RECOMB 1 MG INJ IM PRN (17:33)
[2020-01-17] MEDS ORDERED: DEXTROSE 50%-WATER 25 GM/50 ML DISP.SYRIN IV PRN ×2 (17:33)
[2020-01-17] MEDS: ONDANSETRON HCL INJ/PF 4 MG/2 ML SDV IV PRN (17:40)
[2020-01-17] MEDS: PANTOPRAZOLE SODIUM 40 MG TABLET.DR PO SCH (17:40)
[2020-01-17] MEDS: CLINDAMYCIN 900 MG/D5W RTU 900 MG/50 ML RTUPB IV SCH (18:46)
[2020-01-17] MEDS: INSULIN LISPRO 100 UNIT/ML 3 ML VIAL SUBCUT SCH (21:01)
[2020-01-17] MEDS: HEPARIN SOD (PORCINE) 5,000 UNIT/ML 1 ML VIAL SUBCUT SCH (21:18)
[2020-01-17] MEDS: OXYCODONE-ACETAMINOPHEN 5-325 MG TABLET PO PRN (21:47)
[2020-01-17] MEDS: VANCOMYCIN HCL 1,500 MG in DEXTROSE 5%-WATER 250 ML IV SCH (21:51)
[2020-01-18] MEDS: CLINDAMYCIN 900 MG/D5W RTU 900 MG/50 ML RTUPB IV SCH ×3 (01:45→17:40)
[2020-01-18] MEDS: HEPARIN SOD (PORCINE) 5,000 UNIT/ML 1 ML VIAL SUBCUT SCH ×3 (05:46→21:53)
[2020-01-18] MEDS: VANCOMYCIN HCL 1,500 MG in DEXTROSE 5%-WATER 250 ML IV SCH ×3 (05:48→21:55)
[2020-01-18] MEDS: PANTOPRAZOLE SODIUM 40 MG TABLET.DR PO SCH ×2 (05:50→17:40)
[2020-01-18 06:19] LABS: ABSOLUTE MONOCYTES (AUTO) 0.6 10^3/uL (0.1-1.4); ABSOLUTE NEUT (AUTO) 15.1 10^3/uL (1.7-8.2); BASOPHILS % (AUTO) 0.2 % (0-2); HEMATOCRIT 43.6 % (36.0-47.0); HEMOGLOBIN 14.5 g/dL (12.0-15.5); LYMPHOCYTES % (AUTO) 5.7 % (13-45); MEAN CORPUSCULAR HEMOGLOBIN 28.7 pg (27.0-33.4); MEAN CORPUSCULAR HGB CONC 33.2 g/dL (32.0-36.0); MEAN CORPUSCULAR VOLUME 86 fl (80-97); MONOCYTES % (AUTO) 3.9 % (3-13); RED BLOOD COUNT 5.05 10^6/uL (3.72-5.28); RED CELL DISTRIBUTION WIDTH 13.7 % (11.5-14.0); SEGMENTED NEUTROPHILS % (AUTO) 90.2 % (42-78); TOTAL CELLS COUNTED % (AUTO) 100 %; WHITE BLOOD COUNT 16.8 10^3/uL (4.0-10.5)
[2020-01-18 07:16] LABS: PLATELET COUNT 178 10^3/uL (150-450)
[2020-01-18] MEDS: INSULIN LISPRO 100 UNIT/ML 3 ML VIAL SUBCUT SCH ×4 (07:41→22:14)
[2020-01-18] MEDS: ACETAMINOPHEN 325 MG TABLET PO PRN (08:07)
[2020-01-18 08:16] LABS: ALBUMIN 3.3 g/dL (3.5-5.0); ALKALINE PHOSPHATASE 72 U/L (38-126); ANION GAP 11 (5-19); ASPARTATE AMINO TRANSFERASE 25 U/L (14-36); BILIRUBIN,TOTAL 0.5 mg/dL (0.2-1.3); BLOOD UREA NITROGEN 9 mg/dL (7-20); CARBON DIOXIDE 23 mmol/L (22-30); CHLORIDE 104 mmol/L (98-107); CHOLESTEROL 86.98 mg/dL (0-200); GLUCOSE 118 mg/dL (75-110); POTASSIUM 3.8 mmol/L (3.6-5.0); TOTAL PROTEIN 6.3 g/dL (6.3-8.2); TRIGLYCERIDES 87 mg/dL (<150)
[2020-01-18 08:26] LABS: DIRECT LDL 51 mg/dL (<100)
--- NOTE | 2020-01-18 10:02 | XCELERA REPORT ---
[address] [facility] [place] [address] Lower Extremity Venous Evaluation Procedure: Color flow and duplex imaging of the veins of the right lower extremity as well as the left Common Femoral vein. Right Sided Venous Evaluation Normal vessel filling wall to wall, compression and augmentation as well as Colour flow down to the infrageniculate veins. Left Sided Venous Evaluation The left common femoral vein is fully compressible. Spontaneous and phasic flow is present in the left common femoral vein. Interpretation Summary No duplex evidence of DVT or obstruction in the right lower extremity nor in the left Common Femoral vein. Name: SID LINTON Age: 29 yrs Gender: Female : 1990 Patient Status: Inpatient Patient Location: [place] [address]^A Study Date: 01/17/2020 04:43 PM Reason For Study: RIGHT LEG SWELLING /TACHYCARDIA Ordering Physician: SOHAIL STODDARD Performed By: Amos Martínez : SOHAIL STODDARD > Derick Macias
[2020-01-18] MEDS: NORMAL SALINE 1000 ML 1,000 ML IV PRN (13:55)
[2020-01-18] MEDS: OXYCODONE-ACETAMINOPHEN 5-325 MG TABLET PO PRN (13:56)
--- NOTE | 2020-01-18 16:43 | PDOC PROGRESS REPORT ---
Subjective Progress Note for:: 01/18/20 Subjective:: Today patient can still complains of fever and headache. States that she is having migraines which is typical for her feels like prior episodes of her migraines. Does not endorse some neck pain as well but not really stiff. Admits to picking on her toes in her right foot. Reason For Visit: CELLULITIS Physical Exam Vital Signs: Temp Pulse Resp BP Pulse Ox 101.2 F H 110 H 24 H 134/60 H 100 01/18/20 11:28 01/18/20 11:28 01/18/20 11:28 01/18/20 11:28 01/18/20 11:28 Intake & Output 01/17/20 01/18/20 01/19/20 06:59 06:59 06:59 Intake Total 3400 1317 Balance 3400 1317 Weight 161.3 kg General appearance: PRESENT: no acute distress, cooperative, morbidly obese Head exam: PRESENT: normocephalic Eye exam: PRESENT: EOMI Mouth exam: PRESENT: neck supple Neck exam: ABSENT: meningismus Respiratory exam: PRESENT: clear to auscultation nick, unlabored. ABSENT: tachypnea, wheezes Cardiovascular exam: PRESENT: +S1, +S2, tachycardia. ABSENT: irregular rhythm GI/Abdominal exam: PRESENT: normal bowel sounds, soft. ABSENT: rebound, rigid, tenderness Neurological exam: PRESENT: alert, awake, oriented to person, oriented to place, oriented to time, oriented to situation Results Laboratory Results: 01/18/20 05:32 01/18/20 07:34 01/18/20 01/18/20 01/18/20 05:32 05:32 05:32 WBC 16.8 H RBC 5.05 Hgb 14.5 Hct 43.6 MCV 86 MCH 28.7 MCHC 33.2 RDW 13.7 Plt Count 178 Seg Neutrophils % 90.2 H Sodium Cancelled Potassium Cancelled Chloride Cancelled Carbon Dioxide Cancelled Anion Gap Cancelled BUN Cancelled Creatinine Cancelled Est GFR ( Amer) Cancelled Est GFR (Non-Af Amer) Cancelled Glucose Cancelled Calcium Cancelled Magnesium Cancelled Total Bilirubin Cancelled AST Cancelled Alkaline Phosphatase Cancelled Total Protein Cancelled Albumin Cancelled Triglycerides Cancelled Cholesterol Cancelled LDL Cholesterol Direct Cancelled VLDL Cholesterol Cancelled HDL Cholesterol Cancelled TSH Cancelled 01/18/20 01/18/20 07:34 07:34 WBC RBC Hgb Hct MCV MCH MCHC RDW Plt Count Seg Neutrophils % Sodium 138.1 Potassium 3.8 Chloride 104 Carbon Dioxide 23 Anion Gap 11 BUN 9 Creatinine 0.77 Est GFR ( Amer) > 60 Est GFR (Non-Af Amer) Glucose 118 H Calcium 8.0 L Magnesium 2.0 Total Bilirubin 0.5 AST 25 Alkaline Phosphatase 72 Total Protein 6.3 Albumin 3.3 L Triglycerides 87 Cholesterol 86.98 LDL Cholesterol Direct 51 VLDL Cholesterol 17.0 HDL Cholesterol 25 L TSH 0.52 01/17/20 12:15 Blood Blood Culture (PCR) - Final Staphylococcus Species Impressions: Chest X-Ray 01/17/20 14:49 IMPRESSION: NO ACUTE RADIOGRAPHIC FINDING IN THE CHEST. Assessment and Plan - Diagnosis (1) Cellulitis of leg, right Is this a current diagnosis for this admission?: Yes Plan: Right anterior garcia erythema, swelling and tenderness. Continue empiric IV antibiotics day 2. Still febrile. Awaiting blood culture results. Continue to monitor leukocytosis. (2) Morbid obesity Is this a current diagnosis for this admission?: Yes Plan: TSH and hemoglobin A1c within normal limits (3) Pharyngitis Is this a current diagnosis for this admission?: Yes Plan: Strep test and influenza is negative. Continue supportive care. (4) Urinary tract infection Qualifiers: Urinary tract infection type: acute cystitis Is this a current diagnosis for this admission?: Yes Plan: Continue antibiotics and follow-up urine culture - Time Time Spent with patient: Less than 15 minutes
[2020-01-18] MEDS: KETOROLAC TROMETHAMINE INJ/PF 30 MG/1 ML SDV IV PRN (19:59)
[2020-01-18 21:09] LABS: VANCOMYCIN,TROUGH 9.1 ug/mL (5.0-20.0)
[2020-01-18] MEDS: ONDANSETRON HCL INJ/PF 4 MG/2 ML SDV IV PRN (21:55)
[2020-01-19] MEDS: CLINDAMYCIN 900 MG/D5W RTU 900 MG/50 ML RTUPB IV SCH ×2 (01:33→09:30)
[2020-01-19] MEDS: ONDANSETRON HCL INJ/PF 4 MG/2 ML SDV IV PRN ×3 (02:58→20:30)
[2020-01-19] MEDS: KETOROLAC TROMETHAMINE INJ/PF 30 MG/1 ML SDV IV PRN ×3 (02:59→20:29)
[2020-01-19] MEDS: PANTOPRAZOLE SODIUM 40 MG TABLET.DR PO SCH ×2 (05:11→20:31)
[2020-01-19] MEDS: HEPARIN SOD (PORCINE) 5,000 UNIT/ML 1 ML VIAL SUBCUT SCH ×3 (05:11→22:38)
[2020-01-19] MEDS: VANCOMYCIN HCL 1,500 MG in DEXTROSE 5%-WATER 250 ML IV SCH ×3 (05:13→22:44)
[2020-01-19] MEDS: NORMAL SALINE 1000 ML 1,000 ML IV PRN (05:13)
[2020-01-19 05:43] LABS: ABSOLUTE LYMPHOCYTES (AUTO) 1.2 10^3/uL (0.5-4.7); BASOPHILS % (AUTO) 0.3 % (0-2); HEMATOCRIT 36.3 % (36.0-47.0); LYMPHOCYTES % (AUTO) 9.4 % (13-45); MEAN CORPUSCULAR HEMOGLOBIN 28.9 pg (27.0-33.4); MEAN CORPUSCULAR HGB CONC 33.9 g/dL (32.0-36.0); MEAN CORPUSCULAR VOLUME 85 fl (80-97); MONOCYTES % (AUTO) 7.5 % (3-13); PLATELET COUNT 151 10^3/uL (150-450); RED BLOOD COUNT 4.26 10^6/uL (3.72-5.28); RED CELL DISTRIBUTION WIDTH 14.1 % (11.5-14.0); SEGMENTED NEUTROPHILS % (AUTO) 82.8 % (42-78); TOTAL CELLS COUNTED % (AUTO) 100 %; WHITE BLOOD COUNT 13.2 10^3/uL (4.0-10.5)
[2020-01-19 05:47] LABS: HEMOGLOBIN 12.3 g/dL (12.0-15.5)
[2020-01-19] MEDS: INSULIN LISPRO 100 UNIT/ML 3 ML VIAL SUBCUT SCH ×3 (07:53→17:22)
[2020-01-19] MEDS: PROMETHAZINE HCL INJ 25 MG/1 ML VIAL IV PRN (14:24)
[2020-01-19] MEDS ORDERED: METOCLOPRAMIDE HCL INJ/PF 10 MG/2 ML SDV IV PRN (16:09)
[2020-01-19] MEDS ORDERED: DIPHENHYDRAMINE HCL 50 MG/ML VIAL IV PRN (16:09)
--- NOTE | 2020-01-19 16:20 | PDOC PROGRESS REPORT ---
Subjective Progress Note for:: 01/19/20 Subjective:: Patient still complaining of headache today. Feels very groggy. Still has pain and tenderness in her leg at site of cellulitis. Reason For Visit: CELLULITIS Physical Exam Vital Signs: Temp Pulse Resp BP Pulse Ox 98.2 F 89 18 129/75 H 98 01/19/20 12:39 01/19/20 13:18 01/19/20 13:18 01/19/20 12:39 01/19/20 13:18 Intake & Output 01/18/20 01/19/20 01/20/20 06:59 06:59 06:59 Intake Total 3400 3343 Balance 3400 3343 Weight 161.3 kg 161.3 kg General appearance: PRESENT: no acute distress, cooperative, other - Laying down with eyes closed due to headache Eye exam: PRESENT: EOMI Respiratory exam: PRESENT: unlabored. ABSENT: clear to auscultation nick, ta chypnea, wheezes Cardiovascular exam: PRESENT: RRR, +S1, +S2. ABSENT: tachycardia GI/Abdominal exam: PRESENT: soft. ABSENT: rebound, rigid, tenderness Extremities exam: PRESENT: tenderness - Tenderness and erythema over right garcia. No improvement in demarcated area. Neurological exam: PRESENT: alert, awake, oriented to person, oriented to place, oriented to time Results Laboratory Results: 01/19/20 04:10 01/18/20 07:34 01/19/20 04:10 WBC 13.2 H RBC 4.26 Hgb 12.3 D Hct 36.3 MCV 85 MCH 28.9 MCHC 33.9 RDW 14.1 H Plt Count 151 Seg Neutrophils % 82.8 H 01/17/20 12:15 Blood Blood Culture (PCR) - Final Staphylococcus Species 01/17/20 12:16 Throat Throat Culture - Final NORMAL MERVIN Impressions: Chest X-Ray 01/17/20 14:49 IMPRESSION: NO ACUTE RADIOGRAPHIC FINDING IN THE CHEST. Assessment and Plan - Diagnosis (1) Cellulitis of leg, right Is this a current diagnosis for this admission?: Yes Plan: Right anterior garcia erythema, swelling and tenderness. WBC notably improving however the demarcated margins on her right garcia do not show much improvement. Continue empiric IV antibiotics day 3. Last febrile episode was last night. I will continue vancomycin and change clindamycin to cefepime. Toradol and Tylenol for pain Blood culture positive for staph in 1 blood culture sets. Awaiting speciation. Will check repeat blood cultures. (2) Morbid obesity Is this a current diagnosis for this admission?: Yes Plan: TSH and hemoglobin A1c within normal limits (3) Pharyngitis Is this a current diagnosis for this admission?: Yes Plan: Strep test and influenza is negative. Continue supportive care. (4) Urinary tract infection Qualifiers: Urinary tract infection type: acute cystitis Is this a current diagnosis for this admission?: Yes Plan: Continue antibiotics and follow-up urine culture (5) Chronic migraine Is this a current diagnosis for this admission?: Yes Plan: Patient continues to experience migraine headaches which she states are similar to her prior episodes which she experiences quite frequently. We will try migraine cocktail with Reglan Toradol and Benadryl No meningismal signs - Time Time Spent with patient: Less than 15 minutes
[2020-01-19] MEDS ORDERED: CEFEPIME 1 GM/D5W RTU 1 GM/50 ML RTUPB IV SCH (17:00)
--- NOTE | 2020-01-19 18:52 | RADIOLOGY REPORT (SQ) ---
EXAM DESCRIPTION: CT RT LOWER EXTREMITY WITH COMPLETED DATE/TIME: 01/19/2020 6:36 pm REASON FOR STUDY: Worsening CELLUTIS. R/o abscess. COMPARISON: None. EXAM PARAMETERS: TECHNIQUE:Axial imaging performed through the right lower leg with reformatted ayo nal and sagittal imaging windowed for bone and soft tissues. Images saved to PACS. 3D IMAGING: Were 3D images as MIP, SSD, or volume rendering performed at the work station? No. All CT scanners at this facility use dose modulation, iterative reconstruction, and/or weight based d osing when appropriate to reduce radiation dose to as low as reasonably achievable (ALARA). [facility]: Dose Right [facility]: [employer] [facility]: Dose Right [facility]: Ter[employer] 4D [facility]: [employer] RADIATION DOSE: CT Rad equipment meets quality standard of care and radiation dose reduction techniqu es were employed. CTDIvol: 4.1 mGy. DLP: 182 mGy-cm. mGy. LIMITATIONS: None. FINDINGS: SOFT TISSUES: Is cutaneous/subcutaneous edema in the anterior left leg. There is no fluid collection to suggest an abscess. BONES: No acute fracture. No dislocation. MINERALIZATION: Normal. OTHER: No other significant finding. IMPRESSION: Cellulitis. No evidence of an abscess. TECHNICAL DOCUMENTATION: JOB ID: [id number] [facility] [id number]: Final reports with documentation of one or more dose reduction techniques (e.g., Automate d exposure control, adjustment of the mA and/or kV according to patient size, use of iterative recons truction technique) 2010 [employer]- All Rights Reserved Reading location - IP/workstation name: [email or web address]
[2020-01-20] MEDS: HEPARIN SOD (PORCINE) 5,000 UNIT/ML 1 ML VIAL SUBCUT SCH ×3 (05:24→21:36)
[2020-01-20 05:28] LABS: ABSOLUTE LYMPHOCYTES (AUTO) 1.7 10^3/uL (0.5-4.7); ABSOLUTE MONOCYTES (AUTO) 0.8 10^3/uL (0.1-1.4); ABSOLUTE NEUT (AUTO) 8.1 10^3/uL (1.7-8.2); BASOPHILS % (AUTO) 0.2 % (0-2); EOSINOPHILS % (AUTO) 0.2 % (0-6); HEMATOCRIT 36.4 % (36.0-47.0); HEMOGLOBIN 12.3 g/dL (12.0-15.5); LYMPHOCYTES % (AUTO) 16.2 % (13-45); MEAN CORPUSCULAR HEMOGLOBIN 28.8 pg (27.0-33.4); MEAN CORPUSCULAR HGB CONC 33.7 g/dL (32.0-36.0); MEAN CORPUSCULAR VOLUME 86 fl (80-97); MONOCYTES % (AUTO) 7.8 % (3-13); PLATELET COUNT 170 10^3/uL (150-450); RED BLOOD COUNT 4.26 10^6/uL (3.72-5.28); RED CELL DISTRIBUTION WIDTH 13.9 % (11.5-14.0); SEGMENTED NEUTROPHILS % (AUTO) 75.6 % (42-78); TOTAL CELLS COUNTED % (AUTO) 100 %; WHITE BLOOD COUNT 10.7 10^3/uL (4.0-10.5)
[2020-01-20] MEDS: VANCOMYCIN HCL 1,500 MG in DEXTROSE 5%-WATER 250 ML IV SCH ×3 (05:46→22:14)
[2020-01-20] MEDS: NORMAL SALINE 1000 ML 1,000 ML IV PRN ×2 (05:46→21:46)
[2020-01-20] MEDS: KETOROLAC TROMETHAMINE INJ/PF 30 MG/1 ML SDV IV PRN ×2 (05:56→21:46)
[2020-01-20] MEDS: PROMETHAZINE HCL INJ 25 MG/1 ML VIAL IV PRN (05:57)
[2020-01-20] MEDS: PANTOPRAZOLE SODIUM 40 MG TABLET.DR PO SCH ×2 (06:05→17:26)
[2020-01-20] MEDS: CEFEPIME 1 GM/D5W RTU 1 GM/50 ML RTUPB IV SCH ×2 (09:43→21:43)
[2020-01-20] MEDS: ACETAMINOPHEN 325 MG TABLET PO PRN (09:43)
--- NOTE | 2020-01-20 17:57 | PDOC PROGRESS REPORT ---
Subjective Progress Note for:: 01/20/20 Subjective:: Patient's headache is better today. Still having pain in her right leg Reason For Visit: CELLULITIS Physical Exam Vital Signs: Temp Pulse Resp BP Pulse Ox 98.4 F 73 18 143/74 H 100 01/20/20 15:13 01/20/20 15:13 01/20/20 15:13 01/20/20 15:13 01/20/20 15:13 Intake & Output 01/19/20 01/20/20 01/21/20 06:59 06:59 06:59 Intake Total 3343 2100 890 Balance 3343 2100 890 Weight 161.3 kg 155.3 kg General appearance: PRESENT: no acute distress, cooperative Neck exam: ABSENT: JVD Respiratory exam: PRESENT: clear to auscultation nick Extremities exam: PRESENT: other - Erythema and tenderness over right leg showing improvement within areas of demarcation Neurological exam: PRESENT: alert, awake, oriented to person, oriented to place, oriented to time Results Laboratory Results: 01/20/20 04:52 01/18/20 07:34 01/20/20 04:52 WBC 10.7 H RBC 4.26 Hgb 12.3 Hct 36.4 MCV 86 MCH 28.8 MCHC 33.7 RDW 13.9 Plt Count 170 Seg Neutrophils % 75.6 01/17/20 14:15 Clean Catch Midstream Urine Culture - Final Urogenital Yaneli 01/17/20 12:15 Blood Blood Culture (PCR) - Final Staphylococcus Species 01/17/20 12:15 Blood Blood Culture - Final Staphylococcus Epidermidis Impressions: Chest X-Ray 01/17/20 14:49 IMPRESSION: NO ACUTE RADIOGRAPHIC FINDING IN THE CHEST. Lower Extremity CT 01/19/20 00:00 IMPRESSION: Cellulitis. No evidence of an abscess. Assessment and Plan - Diagnosis (1) Cellulitis of leg, right Is this a current diagnosis for this admission?: Yes Plan: Right anterior garcia erythema, swelling and tenderness. WBC continues to improve and her right leg is finally showing improvement within the areas of demarcation. Continue empiric IV antibiotics day 3. Last febrile episode was last night. Continue vancomycin. Day 2 of cefepime Toradol and Tylenol for pain Blood culture positive for staph epidermidis in 1 blood culture sets which is likely contaminant. Follow-up repeat blood cultures. (2) Morbid obesity Is this a current diagnosis for this admission?: Yes Plan: TSH and hemoglobin A1c within normal limits (3) Pharyngitis Is this a current diagnosis for this admission?: Yes Plan: Strep test and influenza is negative. Continue supportive care. (4) Urinary tract infection Qualifiers: Urinary tract infection type: acute cystitis Is this a current diagnosis for this admission?: Yes Plan: Continue antibiotics and follow-up urine culture (5) Chronic migraine Is this a current diagnosis for this admission?: Yes Plan: Patient continues to experience migraine headaches which she states are similar to her prior episodes which she experiences quite frequently. Continue migraine cocktail with Reglan Toradol and Benadryl No meningismal signs - Time Time Spent with patient: Less than 15 minutes
[2020-01-20] MEDS: ONDANSETRON HCL INJ/PF 4 MG/2 ML SDV IV PRN (21:48)
[2020-01-21] MEDS: PANTOPRAZOLE SODIUM 40 MG TABLET.DR PO SCH ×2 (05:30→17:56)
[2020-01-21] MEDS: HEPARIN SOD (PORCINE) 5,000 UNIT/ML 1 ML VIAL SUBCUT SCH ×3 (05:30→21:15)
[2020-01-21] MEDS: KETOROLAC TROMETHAMINE INJ/PF 30 MG/1 ML SDV IV PRN (05:54)
[2020-01-21] MEDS: NORMAL SALINE 1000 ML 1,000 ML IV PRN (05:55)
[2020-01-21] MEDS: VANCOMYCIN HCL 1,500 MG in DEXTROSE 5%-WATER 250 ML IV SCH ×2 (05:58→17:14)
[2020-01-21 06:37] LABS: HEMATOCRIT 35.7 % (36.0-47.0); HEMOGLOBIN 12.3 g/dL (12.0-15.5); MEAN CORPUSCULAR HEMOGLOBIN 29.1 pg (27.0-33.4); MEAN CORPUSCULAR HGB CONC 34.4 g/dL (32.0-36.0); MEAN CORPUSCULAR VOLUME 85 fl (80-97); PLATELET COUNT 176 10^3/uL (150-450); RED BLOOD COUNT 4.22 10^6/uL (3.72-5.28); WHITE BLOOD COUNT 8.7 10^3/uL (4.0-10.5)
[2020-01-21 06:51] LABS: VANCOMYCIN,TROUGH 14.2 ug/mL (5.0-20.0)
[2020-01-21 07:23] LABS: ABSOLUTE LYMPHOCYTES# (MANUAL) 2.3 10^3/uL (0.5-4.7); ABSOLUTE MONOCYTES # (MANUAL) 1.4 10^3/uL (0.1-1.4); BAND NEUTROPHILS % (MANUAL) 2 % (3-5); BASOPHILS % (MANUAL) 0 % (0-2); EOSINOPHILS % (MANUAL) 1 % (0-6); LYMPHOCYTES % (MANUAL) 25 % (13-45); MONOCYTES % (MANUAL) 16 % (3-13); SEGMENTED NEUTROPHILS % (MAN) 54 % (42-78); TOTAL CELLS COUNTED 100
[2020-01-21 07:24] LABS: ANISOCYTOSIS SLIGHT; PLATELET COMMENT ADEQUATE
[2020-01-21] MEDS: CEFEPIME 1 GM/D5W RTU 1 GM/50 ML RTUPB IV SCH (10:39)
--- NOTE | 2020-01-21 15:22 | PDOC PROGRESS REPORT ---
Subjective Progress Note for:: 01/21/20 Subjective:: Patient feels a lot better today. Leg pain is improving. For the first time, she states she was able to walk without severe pain in her leg. Reason For Visit: CELLULITIS Physical Exam Vital Signs: Temp Pulse Resp BP Pulse Ox 97.9 F 73 16 151/76 H 97 01/21/20 11:10 01/21/20 11:10 01/21/20 11:10 01/21/20 11:10 01/21/20 11:10 Intake & Output 01/20/20 01/21/20 01/22/20 06:59 06:59 06:59 Intake Total 2100 3528 480 Balance 2100 3528 480 Weight 155.3 kg 155.7 kg General appearance: PRESENT: no acute distress, cooperative Neck exam: ABSENT: JVD Respiratory exam: PRESENT: clear to auscultation nick Extremities exam: PRESENT: other - Erythema leg seems to be improving based of demarcated area Results Laboratory Results: 01/21/20 05:28 01/21/20 05:28 01/21/20 01/21/20 05:28 05:28 WBC 8.7 RBC 4.22 Hgb 12.3 Hct 35.7 L MCV 85 MCH 29.1 MCHC 34.4 RDW 14.0 Plt Count 176 Seg Neutrophils % Not Reportable Creatinine 0.57 Est GFR ( Amer) > 60 01/17/20 14:15 Clean Catch Midstream Urine Culture - Final Urogenital Yaneli 01/17/20 12:15 Blood Blood Culture (PCR) - Final Staphylococcus Species 01/17/20 12:15 Blood Blood Culture - Final Staphylococcus Epidermidis Impressions: Chest X-Ray 01/17/20 14:49 IMPRESSION: NO ACUTE RADIOGRAPHIC FINDING IN THE CHEST. Lower Extremity CT 01/19/20 00:00 IMPRESSION: Cellulitis. No evidence of an abscess. Assessment and Plan - Diagnosis (1) Cellulitis of leg, right Is this a current diagnosis for this admission?: Yes Plan: Right anterior garcia erythema, swelling and tenderness. Leukocytosis resolved Continue empiric IV antibiotics day 4. Afebrile for 48 hours now. Continue vancomycin. Day 3 of cefepime Toradol and Tylenol for pain Blood culture positive for staph epidermidis in 1 blood culture sets which is likely contaminant. Repeat blood cultures are negative so far. Will give 1 more day of IV antibiotics and then discharged on p.o. antibiotics tomorrow. (2) Morbid obesity Is this a current diagnosis for this admission?: Yes (3) Pharyngitis Is this a current diagnosis for this admission?: Yes (4) Urinary tract infection Qualifiers: Urinary tract infection type: acute cystitis Is this a current diagnosis for this admission?: Yes Plan: Urine culture negative. UTI ruled out. (5) Chronic migraine Is this a current diagnosis for this admission?: Yes - Time Time Spent with patient: Less than 15 minutes
[2020-01-21] MEDS: SULFAMETHOXAZOLE/TRIMETHOPRIM 800-160 MG TABLET PO SCH (21:22)
[2020-01-21] MEDS: CIPROFLOXACIN HCL 500 MG TABLET PO SCH (21:22)
[2020-01-22] MEDS: HEPARIN SOD (PORCINE) 5,000 UNIT/ML 1 ML VIAL SUBCUT SCH (05:24)
[2020-01-22] MEDS: PANTOPRAZOLE SODIUM 40 MG TABLET.DR PO SCH (05:30)
[2020-01-22] MEDS: SULFAMETHOXAZOLE/TRIMETHOPRIM 800-160 MG TABLET PO SCH (09:49)
[2020-01-22] MEDS: CIPROFLOXACIN HCL 500 MG TABLET PO SCH (09:49)
--- NOTE | 2020-01-22 11:23 | PDOC DISCHARGE SUMMARY ---
Impression - Admit/DC Date/PCP Admission Date/Primary Care Provider: 01/17/20 16:23 Discharge Date: 01/22/20 - Discharge Diagnosis (1) Cellulitis of leg, right Is this a current diagnosis for this admission?: Yes (2) Morbid obesity Is this a current diagnosis for this admission?: Yes (3) Pharyngitis Is this a current diagnosis for this admission?: Yes (4) Urinary tract infection Is this a current diagnosis for this admission?: Yes (5) Chronic migraine Is this a current diagnosis for this admission?: Yes - Additional Information Discharge Diet: As Tolerated Referrals: [facility] [Outside] - 01/25/20 3:00 pm (WITH SARAH OLVERA) Prescriptions: Ciprofloxacin HCl [Cipro 500 mg Tablet] 500 mg PO Q12 7 Days tablet Naproxen Sodium 2 cap PO TIDP PRN #30 capsule PRN Reason: Sulfamethoxazole/Trimethoprim [Septra-Ds 800-160 mg Tablet] 2 tab PO Q12 7 Days tablet Home Medications: Ciprofloxacin HCl [Cipro 500 mg Tablet] 500 mg PO Q12 7 Days tablet 01/22/20 Naproxen Sodium 2 cap PO TIDP PRN #30 capsule 01/22/20 Sulfamethoxazole/Trimethoprim [Septra-Ds 800-160 mg Tablet] 2 tab PO Q12 7 Days tablet 01/22/20 History of Present Illiness History of Present Illness: SID LINTON is a 29 year old female past medical history of prediabetes, depression, morbid obesity, presenting to ED complaining of sore throat, nausea, and right lower extremity anterior garcia erythema and swelling. Patient is stating that while sleeping she tends to rub her feet together, three days ago she noticed some blisters on her right and left toes while waking up, the following day noticed some painful, expanding, erythema on anterior garcia of the right lower extremity, associated with nausea, shortness of breath, sore throat, mild non productive cough, fever and chills. Denies any recent travel, trauma, tick bites, bug bites, animal bites. Denies any chest pain, vomiting, abdominal pain, diarrhea, constipation or any urinary symptoms. Hospital Course Hospital Course: Patient was admitted with notable fever, leukocytosis and a raging right lower extremity cellulitis with significant erythema warmth. CT of the leg showed no evidence of abscess formation and no underlying evidence of gas. Patient was treated with IV vancomycin and her fever improved but redness persisted. As such cefepime was added to patient's regimen with significant improvement of her erythema. Blood cultures were negative though there was a set that was contaminated. However repeat blood culture has been negative. Patient has been afebrile for with over 48 hours now and erythema continues to show improvement and as such she has been discharged on p.o. Bactrim and ciprofloxacin given that cefepime had to be added to the Vanco in order to achieve good improvement erythema. Patient was also treated for acute on chronic migraines and demonst rated no meningismus signs. Her migraines have improved and she is being discharged with naproxen to help with her migraine attacks. [facility] for [facility] care. Physical Exam Vital Signs: Temp Pulse Resp BP Pulse Ox 98.6 F 84 17 135/77 H 97 01/22/20 08:32 01/22/20 08:32 01/22/20 08:32 01/22/20 08:32 01/22/20 08:32 Intake & Output 01/21/20 01/22/20 01/23/20 06:59 06:59 06:59 Intake Total 3528 1610 Balance 3528 1610 Weight 155.7 kg 155.6 kg General appearance: PRESENT: no acute distress, cooperative Neck exam: ABSENT: JVD, meningismus Respiratory exam: PRESENT: clear to auscultation nick Cardiovascular exam: PRESENT: +S1, +S2 Extremities exam: PRESENT: other - Erythema on right garcia with improvement Neurological exam: PRESENT: alert, awake, oriented to person, oriented to place, oriented to time, oriented to situation Results Laboratory Results: WBC 8.7 10^3/uL (4.0-10.5) 01/21/20 05:28 RBC 4.22 10^6/uL (3.72-5.28) 01/21/20 05:28 Hgb 12.3 g/dL (12.0-15.5) 01/21/20 05:28 Hct 35.7 % (36.0-47.0) L 01/21/20 05:28 MCV 85 fl (80-97) 01/21/20 05:28 MCH 29.1 pg (27.0-33.4) 01/21/20 05:28 MCHC 34.4 g/dL (32.0-36.0) 01/21/20 05:28 RDW 14.0 % (11.5-14.0) 01/21/20 05:28 Plt Count 176 10^3/uL (150-450) 01/21/20 05:28 Lymph % (Auto) Not Reportable 01/21/20 05:28 [place] % (Auto) Not Reportable 01/21/20 05:28 Eos % (Auto) Not Reportable 01/21/20 05:28 Baso % (Auto) Not Reportable 01/21/20 05:28 Absolute Neuts (auto) Not Reportable 01/21/20 05:28 Absolute Lymphs (auto) Not Reportable 01/21/20 05:28 Absolute Monos (auto) Not Reportable 01/21/20 05:28 Absolute Eos (auto) Not Reportable 01/21/20 05:28 Absolute Basos (auto) Not Reportable 01/21/20 05:28 Total Counted 100 01/21/20 05:28 Seg Neutrophils % Not Reportable 01/21/20 05:28 Seg Neuts % (Manual) 54 % (42-78) 01/21/20 05:28 Band Neutrophils % 2 % (3-5) L 01/21/20 05:28 Lymphocytes % (Manual) 25 % (13-45) 01/21/20 05:28 Atypical Lymphs % 2 % (0) 01/21/20 05:28 Monocytes % (Manual) 16 % (3-13) H 01/21/20 05:28 Eosinophils % (Manual) 1 % (0-6) 01/21/20 05:28 Basophils % (Manual) 0 % (0-2) 01/21/20 05:28 Abs Neuts (Manual) 4.9 10^3/uL (1.7-8.2) 01/21/20 05:28 Abs Lymphs (Manual) 2.3 10^3/uL (0.5-4.7) 01/21/20 05:28 Abs Monocytes (Manual) 1.4 10^3/uL (0.1-1.4) 01/21/20 05:28 Absolute Eos (Manual) 0.1 10^3/uL (0.0-0.6) 01/21/20 05:28 Abs Basophils (Manual) 0.0 10^3/uL (0.0-0.2) 01/21/20 05:28 Platelet Comment ADEQUATE 01/21/20 05:28 Anisocytosis SLIGHT 01/21/20 05:28 RBC Morph Comment NORMO-CYTIC/CHROMIC 01/17/20 12:13 D-Dimer 0.52 ug/mL (0.00-0.50) H 01/17/20 12:13 VBG pH 7.41 (7.30-7.42) 01/17/20 12:13 VBG pCO2 36.8 mmHg (35-63) 01/17/20 12:13 VBG HCO3 22.8 mmol/L (20-32) 01/17/20 12:13 VBG Base Excess -1.4 mmol/L 01/17/20 12:13 Sodium 138.1 mmol/L (137-145) 01/18/20 07:34 Potassium 3.8 mmol/L (3.6-5.0) 01/18/20 07:34 Chloride 104 mmol/L (98-107) 01/18/20 07:34 Carbon Dioxide 23 mmol/L (22-30) 01/18/20 07:34 Anion Gap 11 (5-19) 01/18/20 07:34 BUN 9 mg/dL (7-20) 01/18/20 07:34 Creatinine 0.57 mg/dL (0.52-1.25) 01/21/20 05:28 Est GFR ( Amer) > 60 (>60) 01/21/20 05:28 Est GFR (Non-Af Amer) Cancelled 01/18/20 05:32 Est GFR (MDRD) Non-Af > 60 (>60) 01/21/20 05:28 Glucose 118 mg/dL (75-110) H 01/18/20 07:34 POC Glucose 97 mg/dL (70-110) 01/19/20 20:49 Hemoglobin A1c % 5.3 % (4.7-6.0) 01/18/20 05:32 Lactic Acid 1.8 mmol/L (0.7-2.1) 01/17/20 12:13 Calcium 8.0 mg/dL (8.4-10.2) L 01/18/20 07:34 Magnesium 2.0 mg/dL (1.6-2.3) 01/18/20 07:34 Total Bilirubin 0.5 mg/dL (0.2-1.3) 01/18/20 07:34 Direct Bilirubin 0.0 mg/dL (0.0-0.4) 01/18/20 07:34 Neonat Total Bilirubin Not Reportable 01/18/20 07:34 Neonat Direct Bilirubin Not Reportable 01/18/20 07:34 Neonat Indirect Bili Not Reportable 01/18/20 07:34 AST 25 U/L (14-36) 01/18/20 07:34 ALT 26 U/L (<35) 01/18/20 07:34 Alkaline Phosphatase 72 U/L (38-126) 01/18/20 07:34 Total Protein 6.3 g/dL (6.3-8.2) 01/18/20 07:34 Albumin 3.3 g/dL (3.5-5.0) L 01/18/20 07:34 Triglycerides 87 mg/dL (<150) 01/18/20 07:34 Cholesterol 86.98 mg/dL (0-200) 01/18/20 07:34 LDL Cholesterol Direct 51 mg/dL (<100) 01/18/20 07:34 VLDL Cholesterol 17.0 mg/dL (10-31) 01/18/20 07:34 VLDL Cholesterol, Calc Cancelled 01/18/20 05:32 HDL Cholesterol 25 mg/dL (>40) L 01/18/20 07:34 EGFR Cancelled 01/18/20 05:32 TSH 0.52 uIU/mL (0.47-4.68) 01/18/20 07:34 Serum HCG, Qual NEGATIVE (NEGATIVE) 01/17/20 12:13 Urine Color YELLOW 01/17/20 14:15 Urine Appearance SLIGHTLY-CLOUDY 01/17/20 14:15 Urine pH 6.0 (5.0-9.0) 01/17/20 14:15 Ur Specific [place] 1.014 01/17/20 14:15 Urine Protein NEGATIVE mg/dL (NEGATIVE) 01/17/20 14:15 Urine Glucose (UA) NEGATIVE mg/dL (NEGATIVE) 01/17/20 14:15 Urine Ketones NEGATIVE mg/dL (NEGATIVE) 01/17/20 14:15 Urine Blood SMALL (NEGATIVE) H 01/17/20 14:15 Urine Nitrite NEGATIVE (NEGATIVE) 01/17/20 14:15 Urine Bilirubin NEGATIVE (NEGATIVE) 01/17/20 14:15 Urine Urobilinogen NEGATIVE mg/dL (<2.0) 01/17/20 14:15 Ur Leukocyte Esterase MODERATE (NEGATIVE) H 01/17/20 14:15 Urine WBC (Auto) 51 /HPF 01/17/20 14:15 Urine RBC (Auto) 4 /HPF 01/17/20 14:15 Urine Bacteria (Auto) TRACE /HPF 01/17/20 14:15 Squamous Epi Cells Auto 8 /HPF 01/17/20 14:15 Urine Mucus (Auto) RARE /LPF 01/17/20 14:15 Urine Ascorbic Acid NEGATIVE (NEGATIVE) 01/17/20 14:15 Time Trough Drawn 0528 01/21/20 05:28 Vancomycin Trough 14.2 ug/mL (5.0-20.0) 01/21/20 05:28 Influenza A (Rapid) NEGATIVE (NEGATIVE) 01/17/20 11:45 Influenza B (Rapid) NEGATIVE (NEGATIVE) 01/17/20 11:45 Group A Strep Rapid NEGATIVE (NEGATIVE) 01/17/20 11:45 Impressions: Chest X-Ray 01/17/20 14:49 IMPRESSION: NO ACUTE RADIOGRAPHIC FINDING IN THE CHEST. Lower Extremity CT 01/19/20 00:00 IMPRESSION: Cellulitis. No evidence of an abscess. Plan Time Spent: Less than 30 Minutes Stroke Is this a Stroke Patient?: No Acute Heart Failure - Is this a Heart Failure Patient?: No
[2020-01-22 12:03] VITALS: BP 119/89
== END 2020-01-22 12:30 | disposition home or self-care (01) | DRG 603 ==
LOC: ER 11:19 → EH 16:23 → 4W 18:07 → 5 01-19 19:14
PROVIDERS: ADMIT Internal Medicine; ATTEND Internal Medicine
DX: L03.115 Cellulitis of right lower limb (principal); Z68.42 Body mass index [BMI] 45.0-49.9, adult; N30.00 Acute cystitis without hematuria; E66.01 Morbid (severe) obesity due to excess calories; J02.9 Acute pharyngitis, unspecified; G43.909 Migraine, unspecified, not intractable, without status migrainosus; Z88.0 Allergy status to penicillin; F32.9 Major depressive disorder, single episode, unspecified; R00.0 Tachycardia, unspecified; Z83.3 Family history of diabetes mellitus; Z82.3 Family history of stroke; R73.03 Prediabetes; Z71.3 Dietary counseling and surveillance
CPT/HCPCS: 36415; 71045; 80053; 80061; 80202; 81001; 82565; 82803; 82962; 83036; 83605; 83735; 84443; 84703; 85025; 85379; 87040; 87070; 87077; 87086; 87150; 87186; 87804; 87880; 93005; 93010; 93971; 96361; 96365; 96366; 99285; J0692; J1644; J1885; J2405; J2550; J3370; J3490; J7030; J7060; S0119

== ENCOUNTER 2020-02-03 22:36 | Emergency (ER) | payer SELFPAY ==
--- NOTE | 2020-02-03 22:47 | ER Document Report ---
ED Medical Screen (RME) - General Chief Complaint: Leg Swelling Stated Complaint: LEG SWELLING Time Seen by Provider: 02/03/20 22:43 Mode of Arrival: Ambulatory Information source: Patient Notes: 29-year-old female presents to ED for complaint of red swelling right lower leg. She states she has been on antibiotics and it has not gotten any better. She states it started several weeks ago she was admitted with IV antibiotics. She is alert oriented respirations regular nonlabored speaking in full sentences. She states she was supposed to follow-up with the [facility] but [facility] is called several times and they are not scheduling patients right now. I have greeted and performed a rapid initial assessment of this patient. A comprehensive ED assessment and evaluation of the patient, analysis of test results and completion of medical decision making process will be conducted by an additional ED providers. TRAVEL OUTSIDE OF THE [place] IN LAST 30 DAYS: No - Related Data Allergies/Adverse Reactions: Penicillins Allergy (Severe, Verified 01/17/20 13:52) Anaphylaxis Past Medical History Pulmonary Medical History: Reports: Hx Bronchitis Endocrine Medical History: Comment Only: Hx Diabetes Mellitus Type 2 - "prediabetic" Renal/ Medical History: Reports: Hx Ovarian Cysts. Denies: Hx Peritoneal Dialysis, Hx Pelvic Inflammatory Disease Psychiatric Medical History: Reports: Hx Depression - anxiety Infectious Medical History: Denies: Hx HIV Past Surgical History: Reports: Hx Oral Surgery, Hx Tonsillectomy - Immunizations Immunizations up to date: Yes Hx Diphtheria, Pertussis, Tetanus Vaccination: Yes
[2020-02-03] MEDS ORDERED: DIPH/PERTUSS(ACELL)/TETANUS VAC/PF 0.5 ML SYR (>=10YO) IM ONE (23:13)
--- NOTE | 2020-02-03 23:14 | ER Document Report ---
ED Extremity Problem, Lower - General Chief Complaint: Skin Problem Stated Complaint: LEG SWELLING Time Seen by Provider: 02/03/20 22:43 Mode of Arrival: Ambulatory Notes: Patient is a 29-year-old female that comes emergency department for chief complaint of right leg redness, swelling, pain. She states she was diagnosed with cellulitis and admitted to the hospital on 01/17/2020, she had negative Doppler at that time, she was discharged on 01/22/2020 and was taking Cipro and Bactrim for 1 week. She states she completed this, but after completing that she started noticing developing redness and this has worsened over the past couple of days. She denies fever, nausea, vomiting. She states that she was told her she is "borderline diabetic" but she is not on any medications for this. She denies any other medical history except for tonsillectomy, oral surgery, obesity. She denies ever using IV drugs. She smokes, she denies alcohol. She reports her tetanus is not up-to-date. TRAVEL OUTSIDE OF THE [place] IN LAST 30 DAYS: No - Related Data Allergies/Adverse Reactions: Penicillins Allergy (Severe, Verified 01/17/20 13:52) Anaphylaxis Past Medical History - General Information source: Patient - Social History Smoking Status: Current Every Day Smoker Frequency of alcohol use: None Drug Abuse: None Lives with: Family Family History: Reviewed & Not Pertinent, CVA, DM, Malignancy Patient has suicidal ideation: No Patient has homicidal ideation: No Pulmonary Medical History: Reports: Hx Bronchitis Endocrine Medical History: Comment Only: Hx Diabetes Mellitus Type 2 - "prediabetic" Renal/ Medical History: Reports: Hx Ovarian Cysts. Denies: Hx Peritoneal Dialysis, Hx Pelvic Inflammatory Disease Psychiatric Medical History: Reports: Hx Depression - anxiety Infectious Medical History: Denies: Hx HIV Past Surgical History: Reports: Hx Oral Surgery, Hx Tonsillectomy - Immunizations Immunizations up to date: Yes Hx Diphtheria, Pertussis, Tetanus Vaccination: Yes Review of Systems - Review of Systems Constitutional: No symptoms reported EENT: No symptoms reported Cardiovascular: No symptoms reported Respiratory: No symptoms reported Gastrointestinal: No symptoms reported Genitourinary: No symptoms reported Female Genitourinary: No symptoms reported Musculoskeletal: See HPI Skin: See HPI Hematologic/Lymphatic: No symptoms reported Neurological/Psychological: No symptoms reported Physical Exam - Vital signs Vitals: Temp Pulse Resp BP Pulse Ox 98 F 110 H 20 150/105 H 97 02/03/20 22:43 02/03/20 22:43 02/03/20 22:43 02/03/20 22:43 02/03/20 22:43 - Notes Notes: GENERAL: Alert, interacts well. No acute distress. HEAD: Normocephalic, atraumatic. EYES: Pupils equal, round, and reactive to light. Extraocular movements intact. ENT: Oral mucosa moist, tongue midline. Oropharynx unremarkable. Airway patent. LUNGS: Clear to auscultation bilaterally, no wheezes, rales, or rhonchi. No respiratory distress. HEART: Regular rate and rhythm. No murmur ABDOMEN: Soft, non-tender. Non-distended. Bowel sounds present in all 4 quadrants. GENITOURINARY: Deferred EXTREMITIES: Distal lateral lower extremity noted to have an abrasion over the mid tibial area, surrounding this area is mild warmth and there is erythema with some tenderness extending in a wide [place] up towards the mid calf and slightly past this laterally. This also extends down towards the ankle. Normal range of motion of the ankle, unremarkable ankle and foot exam, normal knee exam with normal range of motion. Normal distal neurovascular exam. No induration fluctuance suggesting abscess. Otherwise unremarkable extremities. BACK: no cervical, thoracic, lumbar midline tenderness. No saddle anesthesia, normal distal neurovascular exam. Moves all extremities in full range of motion. NEUROLOGICAL: Alert and oriented x3. Normal speech. Cranial nerves II through XII grossly intact. PSYCH: Normal affect, normal mood. SKIN: Warm, dry, normal turgor. See extremities exam. Course - Re-evaluation Re-evalutation: Patient is alert and well-appearing. She does have what appears to be cellulitis on the right lower extremity without evidence of abscess. There is no streaking away from the area, she is not febrile. Borderline leukocytosis without shift. Chemistry unremarkable including blood glucose. Patient is not a diabetic. Patient does have a healing abrasion. The area is not extremely swollen, edematous, or tender. There is only mild warmth along with erythema. I have a low suspicion of abscess or necrotizing fasciitis. Appears to be recurring cellulitis. Patient is requesting to be discharged on antibiotics at home. I discussed with Dr. pozo it. Because patient is not a diabetic I have low suspicion of Pseudomonas as a cause, most likely strep versus staph. Based on the appearance I would guess strep but patient will be covered with both Bactrim and Keflex, she has been off antibiotics for about a week now. Advised patient to elevate, asked nursing staff to trace the borders, discussed close follow-up and strict return precautions. Patient states understanding and agreement. Stable and well-appearing at time of discharge. - Vital Signs Vital signs: Temp Pulse Resp BP Pulse Ox 98.3 F 90 20 146/90 H 98 02/04/20 02:57 02/04/20 02:57 02/04/20 02:57 02/04/20 02:57 02/04/20 02:57 - Laboratory Result Diagrams: 02/03/20 23:25 02/03/20 23:25 Laboratory results interpreted by me: 02/03/20 23:25 WBC 10.8 H RDW 14.3 H Discharge - Discharge Clinical Impression: Cellulitis of leg, right Condition: Stable Disposition: HOME, SELF-CARE Additional Instructions: We are attempting to treat this with oral antibiotics first. Take antibiotics as prescribed. Only take pain medication if needed, otherwise take Tylenol. It is important that you keep your leg elevated as much as possible. Call the listed primary care referral for close follow-up and additional management. Return immediately if you worsen including spreading outside of the traced lines, developing fever, severe worsening pain or swelling, or any other concerning symptoms. Prescriptions: Sulfamethoxazole/Trimethoprim [Bactrim Ds Tablet] 1 each PO BID #14 tablet Cephalexin Monohydrate [Keflex 500 mg Capsule] 500 mg PO QID #28 capsule Hydrocodone/Acetaminophen [[place] 5-325 mg Tablet] 1 - 2 tab PO ASDIR PRN #10 tablet PRN Reason: Forms: Return to Work
[2020-02-03 23:41] LABS: ABSOLUTE BASOPHILS # (AUTO) 0.1 10^3/uL (0.0-0.2); ABSOLUTE EOSINOPHILS # (AUTO) 0.2 10^3/uL (0.0-0.6); ABSOLUTE LYMPHOCYTES (AUTO) 3.7 10^3/uL (0.5-4.7); ABSOLUTE MONOCYTES (AUTO) 0.7 10^3/uL (0.1-1.4); ABSOLUTE NEUT (AUTO) 6.2 10^3/uL (1.7-8.2); BASOPHILS % (AUTO) 0.7 % (0-2); EOSINOPHILS % (AUTO) 1.8 % (0-6); HEMATOCRIT 39.1 % (36.0-47.0); HEMOGLOBIN 13.2 g/dL (12.0-15.5); LYMPHOCYTES % (AUTO) 33.7 % (13-45); MEAN CORPUSCULAR HGB CONC 33.9 g/dL (32.0-36.0); MEAN CORPUSCULAR VOLUME 86 fl (80-97); MONOCYTES % (AUTO) 6.9 % (3-13); PLATELET COUNT 257 10^3/uL (150-450); RED BLOOD COUNT 4.56 10^6/uL (3.72-5.28); RED CELL DISTRIBUTION WIDTH 14.3 % (11.5-14.0); SEGMENTED NEUTROPHILS % (AUTO) 56.9 % (42-78); TOTAL CELLS COUNTED % (AUTO) 100 %; WHITE BLOOD COUNT 10.8 10^3/uL (4.0-10.5)
[2020-02-04 00:04] LABS: ALBUMIN 4.1 g/dL (3.5-5.0); ALKALINE PHOSPHATASE 106 U/L (38-126); ANION GAP 9 (5-19); ASPARTATE AMINO TRANSFERASE 30 U/L (14-36); BILIRUBIN,DIRECT 0.4 mg/dL (0.0-0.4); BILIRUBIN,TOTAL 0.4 mg/dL (0.2-1.3); BLOOD UREA NITROGEN 13 mg/dL (7-20); CALCIUM 9.3 mg/dL (8.4-10.2); CARBON DIOXIDE 26 mmol/L (22-30); CHLORIDE 104 mmol/L (98-107); GLUCOSE 89 mg/dL (75-110); POTASSIUM 4.1 mmol/L (3.6-5.0); TOTAL PROTEIN 8.2 g/dL (6.3-8.2)
[2020-02-04] MEDS ORDERED: DOXYCYCLINE HYCLATE INJ 100 MG VIAL IV ONE (00:43)
[2020-02-04] MEDS ORDERED: HYDROCODONE/ACETAMINOPHEN 5-325 MG (6 TAB/ER DISP) PO PRN (01:24)
[2020-02-04] MEDS ORDERED: CEFTRIAXONE 1 GM/D5W RTU 1 GM/50 ML RTUPB IV ONE (01:24)
[2020-02-04] MEDS ORDERED: SULFAMETHOXAZOLE/TRIMETHOPRIM 800-160 MG TABLET PO ONE (01:25)
[2020-02-04 03:02] VITALS: BP 146/90
== END 2020-02-04 03:16 | disposition home or self-care (01) ==
LOC: ER 22:36
DX: L03.115 Cellulitis of right lower limb (principal); M79.89 Other specified soft tissue disorders; Z88.0 Allergy status to penicillin; Z23 Encounter for immunization
CPT/HCPCS: 99283; 90471; 36415; 85025; 80053; 90715; J0696

== ENCOUNTER 2020-09-05 23:15 | Emergency (ER) | payer MEDICAID ==
--- NOTE | 2020-09-06 01:14 | ER Document Report ---
ED Medical Screen (RME) - General Chief Complaint: Shortness Of Breath Stated Complaint: SHORTNESS OF BREATH Primary Care Provider: YVETTE QUEVEDO MD [Primary Care Provider] - Follow up as needed Notes: Patient is a 30-year-old white female with a history of obesity, prediabetes and COPD who presents to the emergency department the chief complaint of shortness of breath. States that this evening at work started having a flare of her COPD. States she took 5 "hits" of her albuterol inhaler without any improvement. She went home had a steam shower without any improvement and put Vicks vapor rub on her feet and still noted no improvement. She states she is never had a flare that was uncontrollable while like this so she came for evaluation. Denies any chest pain. No hemoptysis. No reported lower extremity pain or swelling. No recent travel or known sick contacts. No fever or coryza. I have treated and performed a rapid initial assessment of this patient. A comprehensive ED assessment and evaluation of the patient, analysis of test results and completion of medical decision making process will be conducted by additional ED providers. PHYSICAL EXAMINATION: GENERAL: Well-appearing, well-nourished and in no acute distress. A&Ox4. Answers questions appropriately. TRAVEL OUTSIDE OF THE [place] IN LAST 30 DAYS: No - Related Data Allergies/Adverse Reactions: Penicillins Allergy (Severe, Verified 09/06/20 01:11) Anaphylaxis Past Medical History Pulmonary Medical History: Reports: Hx Bronchitis Endocrine Medical History: Comment Only: Hx Diabetes Mellitus Type 2 - "prediabetic" Renal/ Medical History: Reports: Hx Ovarian Cysts. Denies: Hx Peritoneal D ialysis, Hx Pelvic Inflammatory Disease Psychiatric Medical History: Reports: Hx Depression - anxiety Infectious Medical History: Denies: Hx HIV Past Surgical History: Reports: Hx Oral Surgery, Hx Tonsillectomy - Immunizations Immunizations up to date: Yes Hx Diphtheria, Pertussis, Tetanus Vaccination: Yes Physical Exam - Vital signs Vitals: Temp Pulse Resp BP Pulse Ox 98.2 F 78 21 H 155/79 H 97 09/05/20 23:41 09/05/20 23:41 09/05/20 23:41 09/05/20 23:41 09/05/20 23:41 Course - Vital Signs Vital signs: Temp Pulse Resp BP Pulse Ox 98.2 F 78 21 H 155/79 H 97 10/26/20 23:41 09/05/20 23:41 09/05/20 23:41 09/05/20 23:41 09/05/20 23:41 Doctor's Discharge - Discharge Referrals: YVETTE QUEVEDO MD [Primary Care Provider] - Follow up as needed
[2020-09-06 01:48] LABS: ABSOLUTE BASOPHILS # (AUTO) 0.1 10^3/uL (0.0-0.2); ABSOLUTE EOSINOPHILS # (AUTO) 0.3 10^3/uL (0.0-0.6); ABSOLUTE NEUT (AUTO) 7.4 10^3/uL (1.7-8.2); BASOPHILS % (AUTO) 0.6 % (0-2); EOSINOPHILS % (AUTO) 2.5 % (0-6); HEMATOCRIT 40.9 % (36.0-47.0); LYMPHOCYTES % (AUTO) 31.1 % (13-45); MEAN CORPUSCULAR HEMOGLOBIN 30.3 pg (27.0-33.4); MEAN CORPUSCULAR HGB CONC 34.3 g/dL (32.0-36.0); MEAN CORPUSCULAR VOLUME 88 fl (80-97); MONOCYTES % (AUTO) 7.8 % (3-13); PLATELET COUNT 232 10^3/uL (150-450); RED BLOOD COUNT 4.62 10^6/uL (3.72-5.28); RED CELL DISTRIBUTION WIDTH 13.5 % (11.5-14.0); TOTAL CELLS COUNTED % (AUTO) 100 %; WHITE BLOOD COUNT 12.7 10^3/uL (4.0-10.5)
[2020-09-06 02:05] LABS: ALKALINE PHOSPHATASE 97 U/L (38-126); ANION GAP 9 (5-19); ASPARTATE AMINO TRANSFERASE 22 U/L (14-36); BILIRUBIN,DIRECT 0.1 mg/dL (0.0-0.4); BILIRUBIN,TOTAL 0.3 mg/dL (0.2-1.3); BLOOD UREA NITROGEN 10 mg/dL (7-20); CALCIUM 9.5 mg/dL (8.4-10.2); CARBON DIOXIDE 26 mmol/L (22-30); CHLORIDE 106 mmol/L (98-107); GLUCOSE 92 mg/dL (75-110); POTASSIUM 4.1 mmol/L (3.6-5.0); TOTAL PROTEIN 6.7 g/dL (6.3-8.2)
--- NOTE | 2020-09-06 02:07 | RADIOLOGY REPORT (SQ) ---
CLINICAL INDICATION: sob. TECHNIQUE: A single portable AP view was obtained of the chest at 0148 hours. COMPARISON: January 17, 2020. FINDINGS: The cardiomediastinal silhouette is normal. The lungs are grossly clear. No evidence of effusion or pneumothorax. The visualized bones are unremarkable. IMPRESSION: No evidence of active intrathoracic disease.
[2020-09-06 02:17] LABS: NT PRO BNP 159 pg/mL (<125)
[2020-09-06 02:22] LABS: TROPONIN I < 0.012 ng/mL
--- NOTE | 2020-09-06 05:22 | ER Document Report ---
ED Respiratory Problem - General Chief Complaint: Shortness Of Breath Stated Complaint: SHORTNESS OF BREATH Time Seen by Provider: 09/06/20 05:09 Primary Care Provider: YVETTE QUEVEDO MD [EMERITUS] - Follow up as needed Notes: Patient is a 30-year-old female that comes emergency department for chief complaint of shortness of breath. Patient states that she started feeling shortness of breath while she was at work earlier today, she states her symptoms started mildly yesterday, she states that when she takes a deep breath she has discomfort in her chest, she states she just feels like she cannot completely catch her breath. She states she tried taking "multiple hits" of her rescue inhaler without any significant change. She denies cough, fever, any current pain, dizziness, passing out. She denies lower extremity swelling, recent travel, or sick contacts. She is a former smoker, stopped smoking 1 month ago, states she was told she has COPD. She denies personal or family history of blood clot, she is not on hormone therapy. TRAVEL OUTSIDE OF THE [place] IN LAST 30 DAYS: No - Related Data Allergies/Adverse Reactions: Penicillins Allergy (Severe, Verified 09/06/20 01:11) Anaphylaxis Home Medications: ALBUTERAL. ANTIEPRESSION MEDS. TOPAMAX. AXAZ Past Medical History - General Information source: Patient - Social History Smoking Status: Former Smoker Drug Abuse: None Lives with: Family Family History: Reviewed & Not Pertinent, CVA, DM, Malignancy Pulmonary Medical History: Reports: Hx Bronchitis, Hx COPD Endocrine Medical History: Comment Only: Hx Diabetes Mellitus Type 2 - "prediabetic" Renal/ Medical History: Reports: Hx Ovarian Cysts. Denies: Hx Peritoneal Dialysis, Hx Pelvic Inflammatory Disease Psychiatric Medical History: Reports: Hx Depression - anxiety Infectious Medical History: Denies: Hx HIV Past Surgical History: Reports: Hx Oral Surgery, Hx Tonsillectomy - Immunizations Immunizations up to date: Yes Hx Diphtheria, Pertussis, Tetanus Vaccination: Yes Review of Systems - Review of Systems Constitutional: No symptoms reported EENT: No symptoms reported Cardiovascular: See HPI Respiratory: See HPI Gastrointestinal: No symptoms reported Genitourinary: No symptoms reported Female Genitourinary: No symptoms reported Musculoskeletal: No symptoms reported Skin: No symptoms reported Hematologic/Lymphatic: No symptoms reported Neurological/Psychological: No symptoms reported Physical Exam - Vital signs Vitals: Temp Pulse Resp BP Pulse Ox 98.2 F 78 21 H 155/79 H 97 09/05/20 23:41 09/05/20 23:41 09/05/20 23:41 09/05/20 23:41 09/05/20 23:41 - Notes Notes: GENERAL: Alert, interacts well. No acute distress. HEAD: Normocephalic, atraumatic. EYES: Pupils equal, round, and reactive to light. Extraocular movements intact. ENT: Oral mucosa moist, tongue midline. Oropharynx unremarkable. Airway patent. LUNGS: Clear to auscultation bilaterally, no wheezes, rales, or rhonchi. No tachypnea or respiratory distress. Non-tender chest wall. HEART: Regular rate and rhythm. No murmur ABDOMEN: Soft, non-tender. Non-distended. EXTREMITIES: Moves all 4 extremities spontaneously. No edema, normal radial and dorsalis pedis pulses bilaterally. No cyanosis. BACK: no cervical, thoracic, lumbar midline tenderness. No saddle anesthesia, n ormal distal neurovascular exam. Moves all extremities in full range of motion. NEUROLOGICAL: Alert and oriented x3. Normal speech. Cranial nerves II through XII grossly intact. Strength 5/5 in all extremities. PSYCH: Normal affect, normal mood. SKIN: Warm, dry, normal turgor. No rashes or lesions noted. Course - Re-evaluation Re-evalutation: This is a 30-year-old female that is obese that reports a history of COPD and recently stopped smoking. She reports a sense of pleuritic chest pain with sensation of shortness of breath but has clear lungs, no hypoxia, no tachycardia, no current pain symptoms. She states she still has a vague sensation of shortness of breath. CBC, chemistry nonspecific, EKG unremarkable, troponin negative. Nonspecific BNP. D-dimer negative, test negative. Low suspicion of pulmonary e mbolism at this point. Based on her exam and testing I have a low suspicion of any emergent intrathoracic etiology at this point. Work-up is negative, because of her pleuritic pain and shortness of breath I did offer COVID-19 testing but this was declined. Patient does not have a fever or any other sick symptoms. Patient is requesting a work note and discharge. She was provided with this, I also provided her with Decadron IM for her pleurisy, she has inhalers at home, discussed expectations, follow-up, return precautions. Patient states appreciation and agreement. Stable and well-appearing at time of discharge. - Vital Signs Vital signs: Temp Pulse Resp BP Pulse Ox 97.6 F 66 14 124/76 97 09/06/20 06:54 09/06/20 06:54 09/06/20 06:54 09/06/20 06:54 09/06/20 06:54 - Laboratory Result Diagrams: 09/06/20 01:30 09/06/20 01:30 Laboratory results interpreted by me: 09/06/20 09/06/20 01:30 01:30 WBC 12.7 H NT-Pro-B Natriuret Pep 159 H - EKG Interpretation by Me Additional EKG results interpreted by me: EKG shows sinus rhythm at a rate of 68, QTc 422, normal axis, no T wave inversions or ST segment changes in consecutive leads. Discharge - Discharge Clinical Impression: Shortness of breath, Pleuritic chest pain Condition: Stable Disposition: HOME, SELF-CARE Additional Instructions: Based on your work-up and your symptoms I suspect that you have pleurisy (inflammation of the lining of your lungs). You have been treated with Decadron, you can also take [id number] anti- inflammatories and Tylenol if needed, you can continue your albuterol if needed. Your symptoms should gradually resolve. Follow-up with primary care. Return if you worsen including severe worsening pain, difficulty breathing, spiking fever, passing out, or any other concerning or worsening symptoms. Forms: Return to Work Referrals: YVETTE QUEVEDO MD [EMERITUS] - Follow up as needed
[2020-09-06] MEDS ORDERED: DEXAMETHASONE SOD PHOS INJ 10 MG/1 ML VIAL IM ONE (06:38)
[2020-09-06 06:56] VITALS: BP 124/76
--- NOTE | 2020-09-06 07:23 | EKG REPORT ---
SEVERITY:- NORMAL ECG - SINUS RHYTHM : Confirmed by: Duane Matamoros MD 06-Sep-2020 07:23:02
== END 2020-09-06 06:54 | disposition home or self-care (01) ==
LOC: ER 23:15
DX: J44.9 Chronic obstructive pulmonary disease, unspecified (principal); R07.81 Pleurodynia; E66.9 Obesity, unspecified; F32.9 Major depressive disorder, single episode, unspecified; Z79.899 Other long term (current) drug therapy; Z87.891 Personal history of nicotine dependence; Z87.01 Personal history of pneumonia (recurrent); Z87.892 Personal history of anaphylaxis; Z88.0 Allergy status to penicillin
CPT/HCPCS: 93005; 99285; 96372; 36415; 84703; 85025; 80053; 84484; 85379; 83880; 71045; 93010; J1100

== ENCOUNTER 2020-10-11 22:38 | Emergency (ER) | payer MEDICAID ==
--- NOTE | 2020-10-11 23:46 | ER Document Report ---
ED Medical Screen (RME) - General Chief Complaint: Blood Pressure Problem Stated Complaint: BLOOD PRESSURE Time Seen by Provider: 10/11/20 23:45 Primary Care Provider: MARLO BUSTAMANTE MD [Primary Care Provider] - Follow up as needed TRAVEL OUTSIDE OF THE [place] IN LAST 30 DAYS: No - HPI Notes: 10/11/20 23:51 30-year-old female to the emergency department with complaints of near syncopal episode that occurred today while she was at work. She states that she felt like her blood pressure went "wonky" and then she blacked out a little bit and felt like she has numbness and tingling in her head. She states she still feels a little bit like she might pass out. She is not sure that she actually did completely pass out. Denies any fevers or chills. Denies any cough. Denies a ny possible COVID-19 contacts. Brief medical screening exam reveals lungs that are clear to auscultation and regular rate and rhythm on auscultation of the heart. I performed a brief medical screening exam on the patient determined that the patient needs further evaluation and management by main side provider. I have placed initial orders to help expedite care. - Related Data Allergies/Adverse Reactions: Penicillins Allergy (Severe, Verified 10/11/20 23:45) Anaphylaxis Past Medical History Pulmonary Medical History: Reports: Hx Bronchitis, Hx COPD Endocrine Medical History: Comment Only: Hx Diabetes Mellitus Type 2 - "prediabetic" Renal/ Medical History: Reports: Hx Ovarian Cysts. Denies: Hx Peritoneal Dialysis, Hx Pelvic Inflammatory Disease Psychiatric Medical History: Reports: Hx Depression - anxiety Infectious Medical History: Denies: Hx HIV Past Surgical History: Reports: Hx Oral Surgery, Hx Tonsillectomy - Immunizations Immunizations up to date: Yes Hx Diphtheria, Pertussis, Tetanus Vaccination: Yes Physical Exam - Vital signs Vitals: Temp Pulse Resp BP Pulse Ox 97.8 F 87 20 118/72 100 10/11/20 22:45 10/11/20 22:45 10/11/20 22:45 10/11/20 22:45 10/11/20 22:45 Course - Vital Signs Vital signs: Temp Pulse Resp BP Pulse Ox 97.8 F 87 20 118/72 100 10/11/20 22:45 10/11/20 22:45 10/11/20 22:45 10/11/20 22:45 10/11/20 22:45 Doctor's Discharge - Discharge Referrals: MARLO BUSTAMANTE MD [Primary Care Provider] - Follow up as needed
[2020-10-12 00:33] LABS: APPEARANCE,URINE SLIGHTLY-CLOUDY; BILIRUBIN,URINE NEGATIVE (NEGATIVE); COLOR,URINE YELLOW; GLUCOSE, URINE NEGATIVE (NEGATIVE); KETONES,URINE NEGATIVE (NEGATIVE); PROTEIN,URINE NEGATIVE (NEGATIVE); URINE SPECIFIC GRAVITY 1.029; UROBILINOGEN,URINE NEGATIVE mg/dL (<2.0)
[2020-10-12 00:36] LABS: ABSOLUTE BASOPHILS # (AUTO) 0.1 10^3/uL (0.0-0.2); ABSOLUTE EOSINOPHILS # (AUTO) 0.2 10^3/uL (0.0-0.6); ABSOLUTE LYMPHOCYTES (AUTO) 3.9 10^3/uL (0.5-4.7); ABSOLUTE MONOCYTES (AUTO) 0.9 10^3/uL (0.1-1.4); ABSOLUTE NEUT (AUTO) 8.8 10^3/uL (1.7-8.2); BASOPHILS % (AUTO) 0.4 % (0-2); EOSINOPHILS % (AUTO) 1.4 % (0-6); HEMATOCRIT 42.6 % (36.0-47.0); HEMOGLOBIN 14.3 g/dL (12.0-15.5); LYMPHOCYTES % (AUTO) 27.9 % (13-45); MEAN CORPUSCULAR HEMOGLOBIN 29.6 pg (27.0-33.4); MEAN CORPUSCULAR HGB CONC 33.5 g/dL (32.0-36.0); MEAN CORPUSCULAR VOLUME 89 fl (80-97); MONOCYTES % (AUTO) 6.8 % (3-13); PLATELET COUNT 261 10^3/uL (150-450); RED BLOOD COUNT 4.82 10^6/uL (3.72-5.28); RED CELL DISTRIBUTION WIDTH 13.4 % (11.5-14.0); SEGMENTED NEUTROPHILS % (AUTO) 63.5 % (42-78); TOTAL CELLS COUNTED % (AUTO) 100 %; WHITE BLOOD COUNT 13.8 10^3/uL (4.0-10.5)
[2020-10-12 00:46] LABS: ALBUMIN 4.2 g/dL (3.5-5.0); ALKALINE PHOSPHATASE 93 U/L (38-126); ANION GAP 8 (5-19); ASPARTATE AMINO TRANSFERASE 21 U/L (14-36); BILIRUBIN,TOTAL 0.2 mg/dL (0.2-1.3); BLOOD UREA NITROGEN 18 mg/dL (7-20); CALCIUM 9.6 mg/dL (8.4-10.2); CARBON DIOXIDE 26 mmol/L (22-30); CHLORIDE 102 mmol/L (98-107); GLUCOSE 86 mg/dL (75-110); POTASSIUM 4.1 mmol/L (3.6-5.0); TOTAL PROTEIN 7.3 g/dL (6.3-8.2)
--- NOTE | 2020-10-12 00:51 | ER Document Report ---
ED General - General Chief Complaint: Dizziness Stated Complaint: BLOOD PRESSURE Time Seen by Provider: 10/11/20 23:45 Primary Care Provider: MARLO BUSTAMANTE MD [Primary Care Provider] - Follow up as needed TRAVEL OUTSIDE OF THE [place] IN LAST 30 DAYS: No - HPI Notes: 30-year-old female presents following a near syncopal event at work. Patient states my blood pressure went all wonky at work. She did not have a cough with her therefore was not able to take her blood pressure. She states that she suddenly had some dizziness, her head felt numb and she had some blurry vision. Does not believe she truly passed out. States she was recently started on lisinopril, she does not know the dosage. States that she has had several of these episodes in the last 3 weeks since starting the medication, however this was the first time an episode happened at work. She usually lays down and feels better but was not able to do this at work. She has not called her primary care doctor to discuss what is happening because she has an upcoming visit on the . Patient denies chest pain, shortness of breath, GI or urinary symptoms. - Related Data Allergies/Adverse Reactions: Penicillins Allergy (Severe, Verified 10/11/20 23:45) Anaphylaxis Home Medications: PSYCH MEDS Past Medical History - General Information source: Patient - Social History Smoking Status: Former Smoker Frequency of alcohol use: None Drug Abuse: None Family History: Reviewed & Not Pertinent, CVA, DM, Malignancy Pulmonary Medical History: Reports: Hx Bronchitis, Hx COPD Endocrine Medical History: Comment Only: Hx Diabetes Mellitus Type 2 - "prediabetic" Renal/ Medical History: Reports: Hx Ovarian Cysts. Denies: Hx Peritoneal Dialysis, Hx Pelvic Inflammatory Disease Psychiatric Medical History: Reports: Hx Depression - anxiety Infectious Medical History: Denies: Hx HIV Past Surgical History: Reports: Hx Oral Surgery, Hx Tonsillectomy - Immunizations Immunizations up to date: Yes Hx Diphtheria, Pertussis, Tetanus Vaccination: Yes Review of Systems - Review of Systems Constitutional: denies: Fever EENT: Other - Black ring around vision Cardiovascular: denies: Chest pain Respiratory: denies: Short of breath Gastrointestinal: denies: Abdominal pain, Diarrhea, Nausea, Vomiting Genitourinary: denies: Dysuria Female Genitourinary: denies: Vaginal discharge Musculoskeletal: No symptoms reported Skin: No symptoms reported Hematologic/Lymphatic: No symptoms reported Neurological/Psychological: See HPI Physical Exam - Vital signs Vitals: Temp Pulse Resp BP Pulse Ox 97.8 F 87 20 118/72 100 10/11/20 22:45 10/11/20 22:45 12 22:45 10/11/20 22:45 10/11/20 22:45 - General General appearance: Appears well, Alert In distress: None - HEENT Head: Normocephalic, Atraumatic Extraocular movements intact: Yes Pupils: PERRL - Respiratory Breath sounds: Normal - Cardiovascular Rhythm: Regular Heart sounds: Normal auscultation - Abdominal Inspection: Obese - Extremities General upper extremity: Normal ROM General lower extremity: Normal ROM - Neurological Neuro grossly intact: Yes Cognition: Normal Orientation: AAOx4 Speech: Normal Cranial nerves: Normal Cerebellar coordination: Normal Motor strength normal: LUE, RUE, LLE, RLE Sensory: Normal - Psychological Associated symptoms: Normal affect - Skin Skin Temperature: Warm Course - Re-evaluation Re-evalutation: 30-year-old female presents following a presyncopal event while at work, has had multiple episodes similar to this which have started after initiation of lisinopril. On exam patient is well-appearing, no apparent distress, hemodynamically stable, and no gross focal neuro deficits. No orthostasis. I suspect that her symptoms are related to starting the blood pressure medications, per the computer she is on a combo pill of lisinopril/HCTZ. She had a laboratory evaluation done through triage which was grossly unremarkable. EKG is nonischemic. Will provide 1 L of fluid 10/12/20 02:19 Fluids have finished, patient continues to be well-appearing, no hemodynamic instability. Discussed with her trying to cut her pill in half until she can have follow-up with her primary care doctor. Return precautions given, stable at time of discharge. - Vital Signs Vital signs: Temp Pulse Resp BP Pulse Ox 97.8 F 78 20 131/69 H 100 10/11/20 22:45 10/12/20 00:58 10/11/20 22:45 10/12/20 00:58 10/11/20 22:45 - Laboratory Result Diagrams: 10/12/20 00:10 10/12/20 00:10 Laboratory results interpreted by me: 10/12/20 10/12/20 10/12/20 00:10 00:10 00:10 WBC 13.8 H Absolute Neuts (auto) 8.8 H Sodium 136.2 L Leukocyte Esterase Rfl LARGE H - EKG Interpretation by Me Additional EKG results interpreted by me: EKG is interpreted by me. Normal sinus rhythm, rate 60. Narrow QRS, QTC within normal limits. No ST segment elevation or depressions. Discharge - Discharge Clinical Impression: Pre-syncope Disposition: HOME, SELF-CARE Additional Instructions: Try cutting your blood pressure pill in half. Be sure to drink plenty of fluids. Follow-up with your primary care doctor as planned. Return to the emergency department any concerning worsening symptoms. Forms: Return to Work Referrals: MARLO BUSTAMANTE MD [Primary Care Provider] - Follow up as needed
[2020-10-12] MEDS ORDERED: RINGERS SOLUTION,LACTATED 1,000 ML IV ONE (01:04)
[2020-10-12 02:31] VITALS: BP 128/72
--- NOTE | 2020-10-12 09:06 | EKG REPORT ---
SEVERITY:- NORMAL ECG - SINUS RHYTHM DIFFUSE ST ELEVATION-CONSIDER PERICARDITIS : Confirmed by: Nirav Anderson MD 12-Oct-2020 09:05:19
== END 2020-10-12 02:29 | disposition home or self-care (01) ==
LOC: ER 22:38
DX: R55 Syncope and collapse (principal); H53.8 Other visual disturbances; J44.9 Chronic obstructive pulmonary disease, unspecified; Z79.899 Other long term (current) drug therapy; Z87.892 Personal history of anaphylaxis; Z88.0 Allergy status to penicillin; Z87.891 Personal history of nicotine dependence
CPT/HCPCS: 93005; 99284; 96360; 36415; 87086; 83735; 85025; 81025; 87088; 80053; 81001; 93010; J7120